=== PATIENT | female | born 1975 | race African-American/Black ===

== ENCOUNTER 2019-08-23 19:17 | Emergency (ER) | payer OTHER, SELFPAY ==
--- NOTE | 2019-08-23 19:32 | ED.URI ---
HPI - URI/Sore Throat General Chief Complaint: Upper Respiratory Infection Stated Complaint: Cold symptoms Time Seen by Provider: 08/23/19 19:45 Source: patient and RN notes reviewed Mode of arrival: ambulatory Limitations: no limitations Related Data Home Medications Medication Instructions Recorded Confirmed amlodipine 5 mg DAILY 07/17/19 08/23/19 atorvastatin 20 mg DAILY 07/17/19 08/23/19 metformin 500 mg PO DAILY 07/17/19 08/23/19 omeprazole 20 mg DAILY 07/17/19 08/23/19 Allergies Allergy/AdvReac Type Severity Reaction Status Date / Time No Known Allergies Allergy Verified 07/17/19 19:21 Review of Systems Review of Systems: Narrative: CONSTITUTIONAL: Denies malaise, chills, sweats, or fever. EYES: Denies visual changes, redness, or discharge. ENT: Reports rhinorrhea, congestion, sinus pain, otalgia and sore throat. CARDIOVASCULAR: Denies chest pain, palpitations, or edema. RESPIRATORY: Reports cough. Denies dyspnea. GASTROINTESTINAL: Denies abdominal pain, nausea, vomiting, diarrhea SKIN: Denies rash or itching. MUSCULOSKELETAL: Denies myalgia. NEUROLOGIC: Denies headache. All systems reviewed & are unremarkable except as noted in HPI and below PMFSH Social History Social History Gender identity (if verbalized by the patient): Female Comments At time of signature, agree with nursing past medical, surgical, social and family history. There is no relevant family history pertinent to the presenting complaint Exam Narrative: Exam Narrative: GENERAL: Well-appearing, well-nourished, and in no acute distress. HEAD: Normocephalic, atraumatic. EYES: PERRLA, conjunctivae clear, and EOMI. ENT: Nares clear, turbinates edematous and erythematous, clear discharge. Mucous membranes moist. TM pearly barraza with dull light reflex bilaterally; no tragal tenderness. Oropharynx erythematous without lesions. Tonsils enlarged and without exudate, no drooling, no hoarseness, no trismus. NECK: Supple. No lymphadenopathy CHEST: Clear to auscultation, breath sounds equal. No wheezing, rhonchi, rales, or stridor. No respiratory distress, speaks in full sentences. HEART: Regular rate and rhythm. No murmur heard. Normal peripheral pulses. SKIN: Warm, dry, no rash. NEURO: Alert and oriented x3. PSYCH: Normal mood and affect Course Course Emergency Course: Patient is aware of diagnosis, understands and agrees to treatment plan. Anticipatory guidance given. Patient agrees to follow-up as directed and is aware of reasons to seek care at the emergency department. Portions of this record may have been created with voice recognition software Vital Signs Vital signs: Reviewed. MDM - URI/Sore Throat MDM Narrative Medical decision making narrative: Differential diagnosis considered: Strep pharyngitis, allergic rhinitis, upper respiratory tract infection, sinusitis, rhinosinusitis, nasopharyngitis. viral pharyngitis, otitis media, otitis externa, pneumonia, bronchitis, viral cough syndrome, viral syndrome, and influenza. Exam findings show no acute concerns or changes; patient is non-toxic appearing and is in no distress. Patient is appropriate for outpatient treatment and follow-up. Critical Care Time Critical Care Time Critical Care Time: No Discharge Plan Discharge Clinical Impression: Upper respiratory infection Qualifiers: URI type: unspecified viral URI Qualified Code(s): J06.9 - Acute upper respiratory infection, unspecified Patient Disposition: Home, Self-Care Condition: Stable Instructions: Upper Respiratory Infection (ED) Additional Instructions: Take medications as directed. Your rapid strep swab was negative today at [facility]. A throat culture will be sent to the laboratory for further testing. If the test is positive, you will receive a phone call within 48 hours and an appropriate antibiotic will be initiated at that time. Your symptoms are likely due to a viral illness, which is not treated with antib
[2019-08-23 19:41] VITALS: BP 127/83; PULSE 92; RESP 16; TEMP 36.9; O2SAT 98
== END 2019-08-23 20:08 | disposition home or self-care (01) ==
PROVIDERS: Emergency Provider Nurse Practitioner; PCP Family Medicine
DX: J06.9 Acute upper respiratory infection, unspecified (principal)
CPT/HCPCS: 87081; 87880; 99213; G0463

== ENCOUNTER 2019-08-27 16:40 | Emergency (ER) | payer OTHER, SELFPAY ==
[2019-08-27 17:00] VITALS: BP 119/71; PULSE 93; RESP 18; TEMP 36.6; O2SAT 99
--- NOTE | 2019-08-27 17:26 | ED.GENADULT ---
HPI - General Adult General Chief complaint: Upper Respiratory Infection Stated complaint: runny nose cough Time Seen by Provider: 08/27/19 17:16 Source: patient and RN notes reviewed Mode of arrival: ambulatory Limitations: no limitations History of Present Illness HPI narrative: 44-year-old -[place] female presents with complaints of upper respiratory infection symptoms, hoarseness, dry cough, and intermittent headache (not the worst of her life) for 14 days. Flonase and Zyrtec without relief. Symptoms increased over the last 2 days with increase facial pressure and congestion and intermittent headaches. Constant dry cough. Rhinorrhea and nasal congestion. Denies sore throat. No high fevers, drooling, neck or throat swelling. No chest pain, wheezing, or shortness of breath. No exacerbation factors. Denies nausea, vomiting, and abdominal pain. Tolerating liquids well. Remains active. Laly denies being , LMP 08/05/2019. Some parts of this dictation were generated by voice recognition software and may contain typographical and/or grammatical inaccuracies. Related Data Home Medications Medication Instructions Recorded Confirmed amlodipine 5 mg DAILY 07/17/19 08/27/19 atorvastatin 20 mg DAILY 07/17/19 08/27/19 metformin 500 mg PO DAILY 07/17/19 08/27/19 omeprazole 20 mg DAILY 07/17/19 08/27/19 Allergies Allergy/AdvReac Type Severity Reaction Status Date / Time No Known Allergies Allergy Verified 08/27/19 17:01 Review of Systems Review of Systems: Narrative: CONSTITUTIONAL: Denies fever, chills, sweats. EYES: Denies visual changes, redness, discharge. ENT: Complains of rhinorrhea, congestion, facial pressure and congestion, hoarseness. Denies sore throat, otalgia. CARDIOVASCULAR: Denies chest pain, palpitations, edema. RESPIRATORY: Denies dyspnea, wheezing. Complains of dry cough. GASTROINTESTINAL: Denies abdominal pain, nausea, vomiting, diarrhea. GENITOURINARY: Denies dysuria, hematuria, abnormal discharge. SKIN: Denies rash or itching. MUSCULOSKELETAL: Denies acute back pain, joint pain, or myalgia. NEUROLOGIC: Denies numbness or focal weakness. Complains of intermittent SOMMERS. PSYCHIATRIC: Denies anxiety or depression. All systems reviewed & are unremarkable except as noted in HPI and below. [facility] Past Medical History Medical History (Updated 09/01/19 @ 20:48 by ROXIE Allison) Diabetes Hypercholesteremia Hypertension Surgical History Surgical History (Updated 09/01/19 @ 20:48 by ROXIE Allison) No significant past surgical history Family History Family History (Updated 09/01/19 @ 20:49 by ROXIE Allison) Mother Hypertension Diabetes mellitus Social History Social History (Updated 09/01/19 @ 20:50 by ROXIE Allison) Smoking status: Never smoker Second hand tobacco smoke exposure: No Substance use: never Living arrangements: with family Occupation/Education: occupation Gender identity (if verbalized by the patient): Female Comments At time of signature, agree with nurse past medical, surgical, social, and family history. There is no relevant family history pertinent to the presenting complaint. Exam Narrative: Exam Narrative: GENERAL: This is a well-nourished, well-developed patient, in no apparent distress. Talks in full sentences and ambulates with steady gait without dyspnea. HEAD: normocephalic, atraumatic. EYES: PERRL. Sclera clear/white. Vision is grossly intact. EARS: External ears normal, auditory canals clear and without drainage, TMs normal without perforation. Hearing grossly intact. NOSE: External nose normal with no obvious nasal discharge, nares with mild-moderate redness and enlarged turbinates, LT worse. No rhinorrhea. THROAT: Mucous membranes moist, posterior pharynx clear. Mild erythema, no exudate. NECK: Neck supple, non-tender without lymphadenopathy, masses or thyromegaly. CARDIOVASCULAR: Regular rate and
== END 2019-08-27 17:40 | disposition home or self-care (01) ==
PROVIDERS: Emergency Provider Nurse Practitioner Family; PCP Family Medicine
DX: J40 Bronchitis, not specified as acute or chronic (principal); E78.00 Pure hypercholesterolemia, unspecified; I10 Essential (primary) hypertension
CPT/HCPCS: 99213; G0463

== ENCOUNTER 2019-10-30 02:17 | Emergency (ER) | payer OTHER, SELFPAY ==
--- NOTE | ~2019-10-30 | XR_ITS ---
EXAMINATION: XR chest 2V DATE: 10/30/2019 03:25 INDICATION: Chest pain. TECHNIQUE: Frontal and lateral views of the chest were obtained. COMPARISON: None. FINDINGS: The chest demonstrates clear lungs without pneumonia, pleural effusion, or pneumothorax. Th e heart size is normal. IMPRESSION: 1. No acute cardiopulmonary disease. Reviewed, dictated and finalized at location A.
--- NOTE | ~2019-10-30 | XR_ITS ---
EXAMINATION: XR abdomen/kub 1V DATE: 10/30/2019 03:25 INDICATION: Abdominal pain. TECHNIQUE: A supine view of the abdomen on 2 radiographs was obtained. COMPARISON: None. FINDINGS: There are no dilated loops of bowel. There is a moderate volume of stool in the colon. Calc ifications in the pelvis may be phleboliths. IMPRESSION: 1. Nonobstructive bowel gas pattern. Reviewed, dictated and finalized at location A.
[2019-10-30 02:22] VITALS: BP 153/83; PULSE 107; RESP 18; O2SAT 100
[2019-10-30 02:41] VITALS: BP 141/99; PULSE 98; RESP 18; TEMP 36.6; O2SAT 100
[2019-10-30 03:24] LABS: Basophils Absolute Auto 0.1 K/mm3 (0.0-0.1); Basophils Percent Auto 1.7 % (0.2-1.2); Eosinophils Absolute Auto 0.2 K/mm3 (0-0.3); Eosinophils Percent Auto 3.5 % (0-4.4); Hemoglobin 12.9 g/dL (12.0-15.0); Immature Granulocyte Absolute 0.01 K/mm3 (0.00-0.031); Immature Granulocyte Percent A 0.2 % (0-0.5); Lymphocytes Absolute Auto 2.35 K/mm3 (0.9-3.2); Lymphocytes Percent Auto 43.6 % (18.3-44.2); Mean Corpuscular HGB Conc 32.3 g/dl (32-36); Mean Corpuscular Hemoglobin 26.4 pg (26-34); Mean Corpuscular Volume 81.8 fl (80-100); Mean Platelet Volume 11.6 fl (7.4-10.4); Monocytes Absolute Auto 0.4 K/mm3 (0.1-0.6); Monocytes Percent Auto 6.7 % (2.6-8.5); Neutrophils Absolute Auto 2.4 K/mm3 (1.3-6.7); Neutrophils Percent Auto 44.3 % (45.5-73.1); Platelet Count Result 258 k/mm3 (150-375); Red Blood Count 4.89 M/mm3 (4.2-5.4); Red Cell Distribution Width 13.5 % (11.5-14.5); White Blood Count 5.4 K/mm3 (4.5-10.0)
[2019-10-30 03:26] VITALS: BP 133/85; PULSE 88; RESP 18; O2SAT 100
[2019-10-30 03:38] LABS: Alanine Aminotransferase 22 U/L (4-35); Alkaline Phosphatase 48 U/L (38-126); Aspartate Amino Transferase 23 U/L (14-36); Bilirubin,Total 0.2 mg/dL (0.2-1.3); Blood Urea Nitrogen 10 mg/dL (7-17); Calcium 10.3 mg/dL (8.4-10.2); Carbon Dioxide 25 mmol/L (22-30); Chloride 106 mmol/L (98-107); Estimated CRCL calculation 90 ml/min; Estimated Glomerular Filt Rate > 60; Glucose 122 mg/dL (65-105); Lipase 42 U/L (23-300); Potassium 3.6 mmol/L (3.4-5.0); Sodium 141 mmol/L (137-145)
[2019-10-30 03:49] LABS: Troponin I < 0.012 ng/mL (0.000-0.034)
--- NOTE | 2019-10-30 03:50 | ED.ABDPAIN ---
HPI - Abdominal Pain General Chief Complaint: Abdominal Pain Stated Complaint: abd discomfort Time Seen by Provider: 10/30/19 02:53 History of Present Illness HPI narrative: Patient is a 44-year-old female who presented to the ER with crampy abdominal pain. Mainly in the upper abdomen and the left side. Worsening over the last week and intermittent in nature. Associated with decreased bowel movements. She is been taking acid reflux medication with minimal relief. Sometimes the discomfort goes up into her left side and the chest wall. No difficulty breathing. No exertional chest pain component. She has not found any alleviating factors for the abdominal discomfort. Related Data Home Medications Medication Instructions Recorded Confirmed amlodipine 5 mg DAILY 07/17/19 08/27/19 atorvastatin 20 mg DAILY 07/17/19 08/27/19 metformin 500 mg PO DAILY 07/17/19 08/27/19 omeprazole 20 mg DAILY 07/17/19 08/27/19 Allergies Allergy/AdvReac Type Severity Reaction Status Date / Time No Known Allergies Allergy Verified 08/27/19 17:01 Review of Systems Review of Systems: All systems reviewed & are unremarkable except as noted in HPI and below Constitutional: Constitutional: Denies chills, Denies fever(s) and Denies weakness ENT: Denies nasal congestion and Denies sore throat Cardiovascular: Cardiovascular: Reports chest pain and Denies radiating jaw, neck or arm pain Respiratory: Respiratory: Denies cough, Denies dyspnea and Denies wheezing Gastrointestinal: Gastrointestinal: Reports abdominal pain, Reports bloating, Reports constipation, Denies diarrhea, Reports nausea and Denies vomiting PMFSH Past Medical History Medical History (Updated 10/30/19 @ 05:53 by Richie Faye MD) Diabetes Hypercholesteremia Hypertension Surgical History Surgical History (Updated 09/01/19 @ 20:48 by ROXIE Allison) No significant past surgical history Family History Family History (Updated 09/01/19 @ 20:49 by ROXIE Allison) Mother Hypertension Diabetes mellitus Social History Social History (Updated 09/01/19 @ 20:50 by ROXIE Allison) Smoking status: Never smoker Second hand tobacco smoke exposure: No Substance use: never Gender identity (if verbalized by the patient): Female Exam Narrative: Exam Narrative: GENERAL: Well-appearing, well-nourished, and in no acute distress. HEAD: Normocephalic, atraumatic. ENT: Mucous membranes moist. CHEST: Clear to auscultation. No respiratory distress. HEART: Regular rate and rhythm. Normal peripheral pulses. ABDOMEN: Soft, nontender, nondistended. EXTREMITIES: Normal range of motion. No edema. Left hand splinted due to carpal tunnel syndrome. SKIN: Warm, dry, no rash. NEURO: Alert and oriented x3. Course Course Emergency Course: Patient resting comfortably. Informed of results. Discharge home with MiraLAX as needed for constipation. Vital Signs Vital signs: Vital Signs Pulse Rate 107 H 10/30/19 02:22 Respiratory Rate 18 10/30/19 02:22 Blood Pressure 153/83 H 10/30/19 02:22 Pulse Oximetry 100 10/30/19 02:22 Temperature 97.9 F 10/30/19 02:41 Pulse Rate 100 10/30/19 05:31 Respiratory Rate 18 10/30/19 05:31 Blood Pressure 129/89 10/30/19 05:31 Pulse Oximetry 100 10/30/19 05:31 MDM - Abdominal Pain Lab Data Result diagrams: 10/30/19 03:19 10/30/19 03:19 Labs: Lab Results 10/30/19 10/30/19 Range/Units 03:19 03:19 WBC 5.4 (4.5-10.0) K/mm3 RBC 4.89 (4.2-5.4) M/mm3 Hgb 12.9 (12.0-15.0) g/dL Hct 40.0 (37.0-47.0) % MCV 81.8 (80-100) fl MCH 26.4 (26-34) pg MCHC 32.3 (32-36) g/dl RDW 13.5 (11.5-14.5) % Plt Count 258 (150-375) k/mm3 MPV 11.6 H (7.4-10.4) fl Immature Gran % (Auto) 0.2 (0-0.5) % Neut % (Auto) 44.3 L (45.5-73.1) % Lymph % (Auto) 43.6 (18.3-44.2) % [place] % (Auto) 6.7 (2.6-8.5) % Eos % (Auto)
[2019-10-30 04:22] VITALS: BP 125/77; PULSE 98; RESP 18; O2SAT 100
[2019-10-30 05:31] VITALS: BP 129/89; PULSE 100; RESP 18; O2SAT 100
[2019-10-30 06:11] VITALS: BP 124/80; PULSE 100; RESP 16; TEMP 36.7; O2SAT 100
== END 2019-10-30 06:13 | disposition home or self-care (01) ==
PROVIDERS: Emergency Provider Emergency Medicine; PCP Family Medicine
DX: K59.00 Constipation, unspecified (principal); E11.9 Type 2 diabetes mellitus without complications; E78.00 Pure hypercholesterolemia, unspecified; I10 Essential (primary) hypertension; Z79.84 Long term (current) use of oral hypoglycemic drugs
CPT/HCPCS: 36415; 71046; 74018; 80053; 83690; 84484; 85025; 99284

== ENCOUNTER 2019-11-02 08:03 | Emergency (ER) | payer OTHER, SELFPAY ==
[2019-11-02 08:16] VITALS: BP 135/81; PULSE 101; RESP 16; TEMP 36.7; O2SAT 99
--- NOTE | 2019-11-02 08:31 | ED.ABDPAIN ---
HPI - Abdominal Pain General Chief Complaint: Abdominal Pain Stated Complaint: gas pain in stomach/pain on left arm Time Seen by Provider: 11/02/19 08:18 Source: patient, RN notes reviewed and old records reviewed Mode of arrival: ambulatory Limitations: no limitations History of Present Illness HPI narrative: Patient presents today complaining of left abdominal gas pains that radiate to the left clavicle and left chest wall area. Patient was seen in the ER on 10/30/19 for same complaint. She had a cardiac work up, as well as KUB, which showed moderate amt of stool in the colon and nonspecific bowel gas pattern. She was prescribed Miralax. Since her ER visit, she has been taking Mylanta, Tums, and Ex-Lax. States she is having bowel movements. Reports her gas pains improve after belching. Denies any additional symptoms. MD elicited complaint: abdominal pain Pertinent past history: constipation Related Data Home Medications Medication Instructions Recorded Confirmed amlodipine 5 mg PO DAILY 07/17/19 11/02/19 atorvastatin 20 mg PO DAILY 07/17/19 11/02/19 metformin 500 mg PO DAILY 07/17/19 11/02/19 omeprazole 20 mg PO DAILY 07/17/19 11/02/19 Allergies Allergy/AdvReac Type Severity Reaction Status Date / Time No Known Allergies Allergy Verified 08/27/19 17:01 Review of Systems Review of Systems: Narrative: CONSTITUTIONAL: Denies body aches, fever, chills, or sweats. EYES: Denies visual changes, redness, or discharge. ENT: Denies rhinorrhea, congestion, sore throat, or otalgia. CARDIOVASCULAR: Denies chest pain, palpitations, or edema. RESPIRATORY: Denies cough or dyspnea. GASTROINTESTINAL: Denies nausea, vomiting, or diarrhea.+ Left abdominal cramping GENITOURINARY: Denies dysuria or hematuria. SKIN: Denies rash, itching, or wounds. MUSCULOSKELETAL: Denies back pain, joint pain, or myalgia. NEUROLOGIC: Denies headache, numbness, tingling, or weakness. PSYCH: Denies depression or anxiety. [facility] Past Medical History Medical History (Updated 11/02/19 @ 08:37 by Fifi Victoria, [facility], ) Diabetes Hypercholesteremia Hypertension Surgical History Surgical History (Updated 09/01/19 @ 20:48 by ROXIE Allison) No significant past surgical history Family History Family History (Updated 09/01/19 @ 20:49 by ROXIE Allsion) Mother Hypertension Diabetes mellitus Social History Social History (Updated 09/01/19 @ 20:50 by ROXIE Allison) Smoking status: Never smoker Second hand tobacco smoke exposure: No Substance use: never Gender identity (if verbalized by the patient): Female Comments At time of signature, I have reviewed and agree with nursing past medical, surgical, social and family history unless otherwise noted. Please see nursing chart for further information. There is no relevant family history pertinent to the presenting complaint Exam Narrative: Exam Narrative: GENERAL: Well-appearing, well-nourished, and in no acute distress. HEAD: Normocephalic, atraumatic. EYES: EOMI. No redness or drainage. Conjunctivae normal. ENT: Mucous membranes pink and moist. NECK: Normal AROM. Supple. No lymphadenopathy. CHEST: No respiratory distress. Clear to auscultation. HEART: Regular rate and rhythm. No murmur appreciated. Normal peripheral pulses. ABDOMEN: Soft, nontender, nondistended, normal active bowel sounds. EXTREMITIES: Normal range of motion. No edema. SKIN: Warm, dry, no rash. Capillary refill normal. Normal skin turgor. NEURO: No focal deficits. Alert and oriented x3. Gait steady. PSYCH: Normal affect. No signs of depression or anxiety. Course Vital Signs Vital signs: Vital Signs Temperature 98.1 F 11/02/19 08:16 Pulse Rate 101 H 11/02/19 08:16 Respiratory Rate 16 11/02/19 08:16 Blood Pressure 135/81 11/02/19 08:16 Pulse Oximetry 99 11/02/19 08:16 Temperature 98.1 F 11/02/19 08:16 Pulse Rate 101 H 11/02/19 08:16 Re
== END 2019-11-02 08:39 | disposition home or self-care (01) ==
PROVIDERS: Emergency Provider Nurse Practitioner
DX: R14.1 Gas pain (principal); E11.9 Type 2 diabetes mellitus without complications; E78.00 Pure hypercholesterolemia, unspecified; I10 Essential (primary) hypertension; K21.9 Gastro-esophageal reflux disease without esophagitis
CPT/HCPCS: 99213; G0463

== ENCOUNTER 2019-11-17 19:20 | Emergency (ER) | payer OTHER, SELFPAY ==
[2019-11-17 19:33] VITALS: BP 155/91; PULSE 121; RESP 16; TEMP 37.1; O2SAT 100
--- NOTE | 2019-11-17 19:37 | ED.GENADULT ---
HPI - General Adult General Chief complaint: Extremity Injury, Lower Stated complaint: muscle pain/both legs Time Seen by Provider: 11/17/19 19:35 Source: patient and RN notes reviewed Mode of arrival: ambulatory Limitations: no limitations History of Present Illness HPI narrative: [id number] female presents with concern for bilateral anterior bahena pain. She denies tenderness to touch, reports pain with dorsiflexion bilaterally. Reports she recently started a new walking routine for exercise. She denies any injury. Denies posterior calf redness, swelling, pain, tenderness. MD complaint: Muscle pain Related Data Home Medications Medication Instructions Recorded Confirmed amlodipine 5 mg PO DAILY 07/17/19 11/02/19 atorvastatin 20 mg PO DAILY 07/17/19 11/02/19 omeprazole 20 mg PO DAILY 07/17/19 11/02/19 Depo-Provera 11/17/19 ergocalciferol (vitamin D2) 11/17/19 Allergies Allergy/AdvReac Type Severity Reaction Status Date / Time No Known Allergies Allergy Verified 08/27/19 17:01 Review of Systems Review of Systems: Narrative: CONSTITUTIONAL: Denies malaise, chills, sweats, or fever. ENT: Denies rhinorrhea, congestion, sinus pain, otalgia or sore throat. CARDIOVASCULAR: Denies chest pain, palpitations, or edema. RESPIRATORY: Denies cough or dyspnea. GASTROINTESTINAL: Denies abdominal pain, nausea, vomiting, diarrhea SKIN: Denies bruising, redness, tenderness MUSCULOSKELETAL: Reports bilateral anterior lower leg pain with dorsiflexion NEUROLOGIC: Denies numbness, weakness. All systems reviewed & are unremarkable except as noted in HPI and below [facility] Past Medical History Medical History (Updated 11/17/19 @ 19:48 by Akila Chapman NP) Diabetes Hypercholesteremia Hypertension Surgical History Surgical History (Updated 09/01/19 @ 20:48 by ROXIE Allison) No significant past surgical history Family History Family History (Updated 09/01/19 @ 20:49 by ROXIE Allison) Mother Hypertension Diabetes mellitus Social History Social History (Updated 09/01/19 @ 20:50 by ROXIE Allison) Smoking status: Never smoker Second hand tobacco smoke exposure: No Substance use: never Gender identity (if verbalized by the patient): Female Comments At time of signature, agree with nursing past medical, surgical, social and family history. There is no relevant family history pertinent to the presenting complaint Exam Narrative: Exam Narrative: GENERAL: Well-appearing, well-nourished, and in no acute distress. HEAD: Normocephalic, atraumatic. EYES: PERRLA, conjunctivae clear NECK: Supple. CHEST: Speaks in full sentences. No respiratory distress. HEART: Regular rate and rhythm. Normal and equal peripheral pulses. EXTREMITIES: Bilateral lower legs, ankles, feet has normal strength and sensation, no edema, normal range of motion. 5/5 strength with knee and ankle flexion and extension. Normal sensation with sensitivity to light touch and pain. No open wounds, no skin tenting, no devitalized tissue or atrophy, no trophic changes, no ecchymosis, no obvious deformity, alignment normal, no point tenderness, nearby joints and structures intact. Distal pulses palpable and equal bilaterally, skin warm, dry, pink. Capillary refill less than 3 seconds. SKIN: Warm, dry, no rash. NEURO: Alert and oriented x3. PSYCH: Normal mood and affect Course Course Emergency Course: Patient is aware of diagnosis, understands and agrees to treatment plan. Anticipatory guidance given. Patient agrees to follow-up as directed and is aware of reasons to seek care at the emergency department. Portions of this record may have been created with voice recognition software Vital Signs Vital signs: Vital Signs Temperature 98.8 F 11/17/19 19:33 Pulse Rate 121 H 11/17/19 19:33 Respiratory Rate 16 11/17/19 19:33 Blood Pressure 155/91 H 11/17/19 19:33 Pulse Oximetry 100 11/17/19 19:33 [place]
== END 2019-11-17 19:51 | disposition home or self-care (01) ==
PROVIDERS: Emergency Provider Nurse Practitioner; PCP Family Medicine
DX: S86.892A Other injury of other muscle(s) and tendon(s) at lower leg level, left leg, initial encounter (principal); S86.891A Other injury of other muscle(s) and tendon(s) at lower leg level, right leg, initial encounter; E11.9 Type 2 diabetes mellitus without complications; E78.00 Pure hypercholesterolemia, unspecified; I10 Essential (primary) hypertension; X50.9XXA Other and unspecified overexertion or strenuous movements or postures, initial encounter; Y93.01 Activity, walking, marching and hiking
CPT/HCPCS: 99212; G0463

== ENCOUNTER 2019-12-13 16:17 | Emergency (ER) | payer OTHER, SELFPAY ==
[2019-12-13 16:26] VITALS: BP 143/79; PULSE 107; RESP 16; TEMP 36.7; O2SAT 100
--- NOTE | 2019-12-13 16:32 | ED.EAR ---
HPI - Ear Problem General Chief complaint: Ear Stated complaint: left ear pain Time Seen by Provider: 12/13/19 16:33 Source: patient and RN notes reviewed Mode of arrival: ambulatory Limitations: no limitations History of Present Illness HPI Narrative: This is a 44 years old female presented office for evaluation of ears pain for two days. Associated with headache. Denies sick contact at home. Admits to history of seasonal allergy. Related Data Home Medications Medication Instructions Recorded Confirmed amlodipine 5 mg PO DAILY 07/17/19 11/02/19 atorvastatin 20 mg PO DAILY 07/17/19 11/02/19 omeprazole 20 mg PO DAILY 07/17/19 11/02/19 Depo-Provera 11/17/19 ergocalciferol (vitamin D2) 11/17/19 Allergies Allergy/AdvReac Type Severity Reaction Status Date / Time No Known Allergies Allergy Verified 08/27/19 17:01 Review of Systems Review of Systems: Narrative: CONSTITUTIONAL: Denies fever, or feeling ill ENT: Denies sore throat. CARDIOVASCULAR: Denies chest pain RESPIRATORY: Denies dyspnea, wheezing, cough GASTROINTESTINAL: Denies abdominal pain, nausea, vomiting, diarrhea. GENITOURINARY: Denies urinary symptoms or discharge SKIN: Denies rash MUSCULOSKELETAL: Denies acute back pain NEUROLOGIC: Denies lightheaded PMFSH Past Medical History Medical History (Updated 12/13/19 @ 16:41 by ROXIE Guajardo) Diabetes Hypercholesteremia Hypertension Seasonal allergies Surgical History Surgical History No significant past surgical history Family History Family History Mother Hypertension Diabetes mellitus Social History Social History Smoking status: Never smoker Second hand tobacco smoke exposure: No Substance use: never Gender identity (if verbalized by the patient): Female Comments At time of signature, I agree with nursing past medical, surgical, social and family history. There is no relevant family history pertinent to the presenting complaint. Exam Narrative: Exam Narrative: GENERAL: This is a well-nourished, well-developed patient, in no apparent distress. EARS: External ears normal, auditory canals clear and without drainage, TMs noted fluid level; no perforation or bulging noted. Hearing grossly intact. NOSE: External nose normal with no obvious nasal discharge, nares without redness, no rhinorrhea. THROAT: Mucous membranes moist, posterior pharynx clear. NECK: Neck supple, non-tender without lymphadenopathy, masses or thyromegaly. CARDIOVASCULAR: Regular rate and rhythm without murmurs, gallops, or rubs. RESPIRATORY: Clear to auscultation. Breath sounds equal bilaterally. No wheezes, rales, or rhonchi. GASTROINTESTINAL: Abdomen soft, non-tender, nondistended. Bowel sounds are active. No hepato-splenomegaly, or palpable masses. No guarding. SKIN: warm, intact with no suspicious lesions or rash, good texture and turgor. NEURO: awake, alert, and oriented to person, place and time. There were no obvious focal neurologic abnormalities. Steady gait [facility] Coma Scale Eye Opening: Spontaneous 4 [place] Coma Scale Motor: Obeys Commands 6 [place] Coma Scale Verbal: Oriented 5 Course Vital Signs Vital signs: Vital Signs Temperature 98.0 F 12/13/19 16:26 Pulse Rate 107 H 12/13/19 16:26 Respiratory Rate 16 12/13/19 16:26 Blood Pressure 143/79 H 12/13/19 16:26 Pulse Oximetry 100 12/13/19 16:26 Temperature 98.0 F 12/13/19 16:26 Pulse Rate 107 H 12/13/19 16:26 Respiratory Rate 16 12/13/19 16:26 Blood Pressure 143/79 H 12/13/19 16:26 Pulse Oximetry 100 12/13/19 16:26 Medical Decision Making MDM Narrative Medical decision making narrative: Discharge instructions reviewed with patient, as well as provided in writing per nursing staff. The instructions also include specific and
== END 2019-12-13 16:53 | disposition home or self-care (01) ==
PROVIDERS: Emergency Provider Nurse Practitioner; PCP Family Medicine
DX: H65.03 Acute serous otitis media, bilateral (principal); E11.9 Type 2 diabetes mellitus without complications; E78.00 Pure hypercholesterolemia, unspecified; I10 Essential (primary) hypertension
CPT/HCPCS: 99213; G0463

== ENCOUNTER 2019-12-18 14:38 | Emergency (ER) | payer OTHER, SELFPAY ==
[2019-12-18 14:53] VITALS: BP 145/83; PULSE 94; RESP 18; TEMP 36.3; O2SAT 100
--- NOTE | 2019-12-18 15:07 | ED.EAR ---
HPI - Ear Problem General Chief complaint: Ear Stated complaint: Ear ache Time Seen by Provider: 12/18/19 14:57 Source: patient, RN notes reviewed and old records reviewed Mode of arrival: ambulatory Limitations: no limitations History of Present Illness HPI Narrative: Patient presents today complaining of bilateral ear pain, left greater than right. She was initially seen at [facility] on 12/13/2019, diagnosed with bilateral serous otitis media and prescribed Sudafed. She has also been using Flonase. Reports the right ear is somewhat improved, but the left ear has been persistent. She is also been occasionally taking Aleve for pain. Denies drainage from the ear. Denies any additional symptoms. MD Complaint: ear pain Related Data Home Medications Medication Instructions Recorded Confirmed amlodipine 5 mg PO DAILY 07/17/19 12/18/19 atorvastatin 20 mg PO DAILY 07/17/19 12/18/19 omeprazole 20 mg PO DAILY 07/17/19 12/18/19 ergocalciferol (vitamin D2) 1 mcg PO DAILY 11/17/19 medroxyprogesterone 150 mg IM [id number] 12/18/19 12/18/19 Allergies Allergy/AdvReac Type Severity Reaction Status Date / Time No Known Allergies Allergy Verified 12/18/19 14:58 Review of Systems Review of Systems: Narrative: CONSTITUTIONAL: Denies body aches, fever, chills, or sweats. EYES: Denies visual changes, redness, or discharge. ENT: Denies rhinorrhea, congestion, sore throat. + Bilateral ear pain CARDIOVASCULAR: Denies chest pain, palpitations, or edema. RESPIRATORY: Denies cough or dyspnea. GASTROINTESTINAL: Denies abdominal pain, nausea, vomiting, or diarrhea. GENITOURINARY: Denies dysuria or hematuria. SKIN: Denies rash, itching, or wounds. MUSCULOSKELETAL: Denies back pain, joint pain, or myalgia. NEUROLOGIC: Denies headache, numbness, tingling, or weakness. PSYCH: Denies depression or anxiety. [facility] Past Medical History Medical History (Updated 12/18/19 @ 15:09 by ROXIE Jean, ) Diabetes Hypercholesteremia Hypertension Seasonal allergies Surgical History Surgical History No significant past surgical history Social History Social History Smoking status: Never smoker Second hand tobacco smoke exposure: No Substance use: never Gender identity (if verbalized by the patient): Female Comments At time of signature, I have reviewed and agree with nursing past medical, surgical, social and family history unless otherwise noted. Please see nursing chart for further information. There is no relevant family history pertinent to the presenting complaint Exam Narrative: Exam Narrative: GENERAL: Well-appearing, well-nourished, and in no acute distress. HEAD: Normocephalic, atraumatic. EYES: EOMI. No redness or drainage. Conjunctivae normal. ENT: Mucous membranes pink and moist. Nares clear. No rhinorrhea. Right TM normal. Left TM erythematous with purulent material behind the TM. Throat normal. Uvula midline. NECK: Normal AROM. Supple. No lymphadenopathy. CHEST: No respiratory distress. EXTREMITIES: Normal range of motion. No edema. SKIN: Warm, dry, no rash. Capillary refill normal. Normal skin turgor. NEURO: No focal deficits. Alert and oriented x3. Gait steady. PSYCH: Normal affect. No signs of depression or anxiety. Course Vital Signs Vital signs: Vital Signs Temperature 97.3 F L 12/18/19 14:53 Pulse Rate 94 12/18/19 14:53 Respiratory Rate 18 12/18/19 14:53 Blood Pressure 145/83 H 12/18/19 14:53 Pulse Oximetry 100 12/18/19 14:53 Temperature 97.3 F L 12/18/19 14:53 Pulse Rate 94 12/18/19 14:53 Respiratory Rate 18 12/18/19 14:53 Blood Pressure 145/83 H 12/18/19 14:53 Pulse Oximetry 100 12/18/19 14:53 Reviewed. Pt has been instructed to follow up with her PCP regarding her elevated blood pressure today. Medical Decision Making Differential Diag
== END 2019-12-18 15:12 | disposition home or self-care (01) ==
PROVIDERS: Emergency Provider Nurse Practitioner; PCP Family Medicine
DX: H66.002 Acute suppurative otitis media without spontaneous rupture of ear drum, left ear (principal); E11.9 Type 2 diabetes mellitus without complications; E78.00 Pure hypercholesterolemia, unspecified; I10 Essential (primary) hypertension
CPT/HCPCS: 99213; G0463

== ENCOUNTER 2019-12-19 22:07 | Emergency (ER) | payer OTHER, SELFPAY ==
--- NOTE | ~2019-12-19 | XR_ITS ---
EXAMINATION: XR chest 2V 12/19/2019 23:07 INDICATION: Sided chest pain. History of gastroesophageal reflux disease. PROCEDURE: 2 view chest COMPARISON: 10/30/2019 FINDINGS: The lungs are clear. The cardiomediastinal silhouette is within normal limits. There are no pleural effusions. There is no pneumothorax suspected. IMPRESSION: 1: NO ACUTE CARDIOPULMONARY DISEASE. Reviewed, dictated and finalized at location A.
[2019-12-19 22:08] VITALS: BP 153/80; PULSE 85; RESP 18; TEMP 36.3; O2SAT 99
--- NOTE | 2019-12-19 22:43 | ECG_ITS ---
Measurements Intervals [place] Rate: 97 P: 76 [place]: 131 QRS: 19 QRSD: 96 T: 3 QT: 339 QTc: 431 Interpretive Statements SINUS RHYTHM NONSPECIFIC T-WAVE ABNORMALITY- ANT/INF LEADS BORDERLINE ECG Electronically Signed On 12-20-2019 7:30:08 CDT by Alin Alba D.O.
--- NOTE | 2019-12-19 22:44 | ED.ABDPAIN ---
HPI - Abdominal Pain General Chief Complaint: Abdominal Pain Stated Complaint: GAS PAIN? Time Seen by Provider: 12/19/19 22:22 Source: RN notes reviewed History of Present Illness HPI narrative: Patient presents emergency department from home for abdominal pain. Patient states over the past 2 weeks she has been having intermittent abdominal pain in her left upper abdomen and lower chest. Patient states the pain is worse when she eats and then will resolve over time after she eats states that it does get better when she takes Tums. She denies any fevers or chills shortness of breath vomiting diarrhea or any other symptoms she was seen by her PCP and started on Protonix but states she has noted minimal improvement. She states she has never seen GI or had any EGDs she denies any other symptoms at this time. Patient currently denies any pain in the emergency department. Patient states symptoms been worse yesterday after eating [employer] and corn nuts Related Data Home Medications Medication Instructions Recorded Confirmed amlodipine 5 mg PO DAILY 07/17/19 12/18/19 atorvastatin 20 mg PO DAILY 07/17/19 12/18/19 ergocalciferol (vitamin D2) 1 mcg PO 2XW 11/17/19 medroxyprogesterone 150 mg IM [id number] 12/18/19 12/18/19 cetirizine 10 mg PO DAILY 12/19/19 pantoprazole 40 mg PO QAM 12/19/19 Allergies Allergy/AdvReac Type Severity Reaction Status Date / Time No Known Allergies Allergy Verified 12/19/19 22:21 Review of Systems Review of Systems: Narrative: Gen.: Denies fevers or chills Eyes: Denies eye pain or visual change ENT: Denies congestion Respiratory: Denies shortness of breath or cough CV: Reports chest pain, denies palpitations GI: Reports abdominal pain, denies nnausea, emesis or diarrhea denies burning, urgency, frequency or hematuria Musculoskeletal: Denies back pain or muscle pain Neuro: Denies numbness, tingling, weakness or focal weakness Skin: Denies rash Except as documented, all other systems reviewed and negative [facility] Past Medical History Medical History Diabetes Hypercholesteremia Hypertension Seasonal allergies Surgical History Surgical History No significant past surgical history Social History Social History Smoking status: Never smoker Second hand tobacco smoke exposure: No Substance use: never Gender identity (if verbalized by the patient): Female Exam Narrative: Exam Narrative: APPEARANCE: No acute distress, nontoxic, resting in bed EYES: EOMI HEENT: Normocephalic, atraumatic, OMM RESPIRATORY: No respiratory distress Clear to auscultation bilaterally with no rhonchi wheezing or rales. CARDIOVASCULAR: Regular rate and rhythm without murmurs rubs or gallops. ABDOMINAL: Soft, nontender, nondistended, no rebound or guarding MUSCULOSKELETAl: Moves all extremities. No clubbing, cyanosis or edema. NEURO: Awake and alert. Following commands, speech normal, no focal deficits SKIN:: Warm, dry. No rashes lesions or abrasions PSYCHIATRIC: Normal affect/mood, Course Course Emergency Course: Discussed with patient results of workup and diagnosis. Discussed need for follow-up with primary care, proper use of medication, and reasons to return to the emergency department. Patient understands and agrees to current treatment plan. Discussed need for follow-up with GI and possible EGD Prior to discharge the patient had asked me about medication for sinus pressure she states that she had seen her doctor 2 days ago for sinus pressure and fullness in her ears and had been prescribed antibiotics and nasal spray she states she has been using those and have been using Sudafed but was concerned with her hypertension that she did not want to continue using Sudafed. Recommended Mucinex Vital Signs Vital signs: Vital Signs Temperature
[2019-12-19 22:47] LABS: Basophils Absolute Auto 0.1 K/mm3 (0.0-0.1); Basophils Percent Auto 1.7 % (0.2-1.2); Eosinophils Absolute Auto 0.1 K/mm3 (0-0.3); Eosinophils Percent Auto 2.3 % (0-4.4); Hematocrit 37.6 % (37.0-47.0); Hemoglobin 12.5 g/dL (12.0-15.0); Lymphocytes Absolute Auto 1.69 K/mm3 (0.9-3.2); Lymphocytes Percent Auto 35.8 % (18.3-44.2); Mean Corpuscular HGB Conc 33.2 g/dl (32-36); Mean Corpuscular Hemoglobin 27.3 pg (26-34); Mean Corpuscular Volume 82.1 fl (80-100); Mean Platelet Volume 10.9 fl (7.4-10.4); Monocytes Absolute Auto 0.3 K/mm3 (0.1-0.6); Monocytes Percent Auto 5.5 % (2.6-8.5); Neutrophils Absolute Auto 2.6 K/mm3 (1.3-6.7); Neutrophils Percent Auto 54.7 % (45.5-73.1); Platelet Count Result 239 k/mm3 (150-375); Red Blood Count 4.58 M/mm3 (4.2-5.4); Red Cell Distribution Width 13.1 % (11.5-14.5); White Blood Count 4.7 K/mm3 (4.5-10.0)
[2019-12-19 22:50] LABS: Add Urine Microscopic? YES; Appearance Urine Cloudy (Clear); Bacteria Urine 1+ /hpf; Bilirubin Urine Negative (Negative); Blood Urine 2+ (Negative); Color Urine Straw (Yellow); Glucose Urine UA Negative (Negative); Ketones Urine Trace mg/dL (Negative); Leukocyte Esterase Ur Negative LEU/UL (Negative); Mucus Urine Rare /lpf; Nitrate Urine Negative (Negative); Protein Urine Negative (Negative); RBC Urine 0-2 /hpf (0-2); Specific Grav Ur 1.012 (1.001-1.035); Squamous Epithelial Cell Urine Many /hpf (Few); Urobilinogen Urine Negative mg/dL (<2.0)
[2019-12-19 22:58] LABS: Alanine Aminotransferase 35 U/L (4-35); Albumin Level 4.8 g/dL (3.5-5.1); Alkaline Phosphatase 49 U/L (38-126); Aspartate Amino Transferase 28 U/L (14-36); Bilirubin,Total 0.5 mg/dL (0.2-1.3); Blood Urea Nitrogen 8 mg/dL (7-17); Calcium 9.7 mg/dL (8.4-10.2); Carbon Dioxide 24 mmol/L (22-30); Chloride 107 mmol/L (98-107); Estimated Glomerular Filt Rate > 60; Glucose 142 mg/dL (65-105); Lipase 35 U/L (23-300); Potassium 3.4 mmol/L (3.4-5.0); Sodium 141 mmol/L (137-145)
[2019-12-19 23:10] LABS: Troponin I < 0.012 ng/mL (0.000-0.034)
[2019-12-20 01:21] LABS: Troponin I < 0.012 ng/mL (0.000-0.034)
[2019-12-20 01:51] VITALS: BP 125/89; PULSE 86; RESP 18; O2SAT 100
== END 2019-12-20 01:53 | disposition home or self-care (01) ==
PROVIDERS: Emergency Provider Emergency Medicine; PCP Family Medicine
DX: K21.9 Gastro-esophageal reflux disease without esophagitis (principal); E11.9 Type 2 diabetes mellitus without complications; E78.00 Pure hypercholesterolemia, unspecified; I10 Essential (primary) hypertension; R94.31 Abnormal electrocardiogram [ECG] [EKG]
CPT/HCPCS: 36415; 71046; 80053; 81001; 81025; 83690; 84484; 85025; 85610; 85730; 93005; 99284

== ENCOUNTER 2019-12-25 15:12 | Emergency (ER) | payer OTHER, SELFPAY ==
[2019-12-25 15:20] VITALS: BP 135/80; PULSE 101; RESP 18; TEMP 37.5; O2SAT 100
--- NOTE | 2019-12-25 15:37 | ED.EXTPRO ---
HPI - Extremity Problem General Chief complaint: Extremity Problem,Nontraumatic Stated complaint: muscle spasm Time Seen by Provider: 12/25/19 15:30 Source: patient and RN notes reviewed Mode of arrival: ambulatory Limitations: no limitations History of Present Illness HPI Narrative: Patient presents today complaining of discomfort in her bilateral lower legs. She describes this discomfort as, the feeling you have before you get a charley horse. States she has been up on her feet working all day and was unable to get in to see her PCP today, so she wanted to come in for evaluation and etiology of this sensation. Denies numbness or tingling in the extremities. Denies pain at this time. Patient has an appt with her PCP in 5 days, but did not think she could wait that long for evaluation. States she has mentioned it to her PCP at past visits but was nonspecific when asked what their plan was for this complaint. Review of patient's chart shows she presents frequently to the ER and Urgent care for various complaints. She was diagnosed with bahena splints on 11/17/2019, and could not verbalize whether or not the symptoms she is currently having are similar to when she presented with bahena splints. Complaint: other (Leg cramping) Related Data Home Medications Medication Instructions Recorded Confirmed amlodipine 5 mg PO DAILY 07/17/19 12/25/19 atorvastatin 20 mg PO DAILY 07/17/19 12/25/19 ergocalciferol (vitamin D2) 1 mcg PO 2XW 11/17/19 12/25/19 medroxyprogesterone 150 mg IM [id number] 12/18/19 12/25/19 cetirizine 10 mg PO DAILY 12/19/19 12/25/19 pantoprazole 40 mg PO QAM 12/19/19 12/25/19 metformin 500 mg PO DIRECTED 12/25/19 12/25/19 Allergies Allergy/AdvReac Type Severity Reaction Status Date / Time No Known Allergies Allergy Verified 12/19/19 22:21 Review of Systems Review of Systems: Narrative: CONSTITUTIONAL: Denies body aches, fever, chills, or sweats. EYES: Denies visual changes, redness, or discharge. ENT: Denies rhinorrhea, congestion, sore throat, or otalgia. CARDIOVASCULAR: Denies chest pain, palpitations, or edema. RESPIRATORY: Denies cough or dyspnea. GASTROINTESTINAL: Denies abdominal pain, nausea, vomiting, or diarrhea. GENITOURINARY: Denies dysuria or hematuria. SKIN: Denies rash, itching, or wounds. MUSCULOSKELETAL: Denies back pain, joint pain. + Bilateral lower leg cramping NEUROLOGIC: Denies headache, numbness, tingling, or weakness. PSYCH: Denies depression or anxiety. PMFSH Surgical History Surgical History No significant past surgical history Social History Social History Smoking status: Never smoker Second hand tobacco smoke exposure: No Substance use: never Gender identity (if verbalized by the patient): Female Comments At time of signature, I have reviewed and agree with nursing past medical, surgical, social and family history unless otherwise noted. Please see nursing chart for further information. There is no relevant family history pertinent to the presenting complaint Exam Narrative: Exam Narrative: GENERAL: Well-appearing, well-nourished, and in no acute distress. HEAD: Normocephalic, atraumatic. EYES: EOMI. No redness or drainage. Conjunctivae normal. ENT: Mucous membranes pink and moist. NECK: Normal AROM. CHEST: No respiratory distress. EXTREMITIES: Nontender to palpation of bilateral lower legs. No edema noted. Distal sensation intact. Capillary refill normal. Pedal pulses normal. Normal color. Normal range of motion. -Panda's SKIN: Warm, dry, no rash. Capillary refill normal. Normal skin turgor. NEURO: No focal deficits. Alert and oriented x3. Gait steady. PSYCH: Normal affect. No signs of depression or anxiety. Course Vital Signs Vital signs: Vital Signs Temperature 99.5 F 12/25/19 15:20 Pulse Rate 101 H 12/25/19 15:20 Respir
== END 2019-12-25 15:43 | disposition home or self-care (01) ==
PROVIDERS: Emergency Provider Nurse Practitioner; PCP Family Medicine
DX: R25.2 Cramp and spasm (principal); I10 Essential (primary) hypertension; E78.00 Pure hypercholesterolemia, unspecified; K21.9 Gastro-esophageal reflux disease without esophagitis
CPT/HCPCS: 99211; G0463

== ENCOUNTER 2020-01-29 14:47 | Emergency (ER) | payer OTHER, SELFPAY ==
[2020-01-29 14:55] VITALS: BP 135/85; PULSE 99; RESP 18; TEMP 37.2; O2SAT 100
--- NOTE | 2020-01-29 14:58 | ED.ABDPAIN ---
HPI - Abdominal Pain General Chief Complaint: Abdominal Pain Stated Complaint: ulcer pain Time Seen by Provider: 01/29/20 15:02 Source: patient Mode of arrival: ambulatory Limitations: no limitations History of Present Illness HPI narrative: Laly Luque is a 44 yo female with a PMH of GERD, leg cramps, HTN, seasonal allergies, high cholesterol, who come to the urgent care with c/o ulcer pain .Has been seen for similar pain in the ER 2 weeks ago; according to note has not seen GI for this discomfort. Currently uses Tums and Protonix, states does not have a lot of relief last bowel movement 2 days ago. Denies smoking or drinking. Related Data Home Medications Medication Instructions Recorded Confirmed amlodipine 5 mg PO DAILY 07/17/19 12/25/19 ergocalciferol (vitamin D2) 1 mcg PO 2XW 11/17/19 12/25/19 medroxyprogesterone 150 mg IM [id number] 12/18/19 12/25/19 cetirizine 10 mg PO DAILY 12/19/19 12/25/19 pantoprazole 40 mg PO QAM 12/19/19 12/25/19 fluticasone propionate INTRANASAL 01/29/20 montelukast mg 01/29/20 pravastatin 01/29/20 Allergies Allergy/AdvReac Type Severity Reaction Status Date / Time No Known Allergies Allergy Verified 12/19/19 22:21 Review of Systems Review of Systems: Narrative: CONSTITUTIONAL: Denies fever, chills, sweats. EYES: Denies visual changes, redness, discharge. ENT: Denies rhinorrhea, congestion, sore throat, otalgia. CARDIOVASCULAR: Denies chest pain, palpitations, edema. RESPIRATORY: Denies dyspnea, wheezing, cough GASTROINTESTINAL:has epigastric pain, no abdominal pain, nausea, vomiting, diarrhea. GENITOURINARY: Denies dysuria, hematuria, abnormal discharge SKIN: Denies rash or itching. NEUROLOGIC: Denies numbness, or focal weakness. PSYCHIATRIC: Denies anxiety or depression. [facility] Past Medical History Medical History Diabetes Hypercholesteremia Hypertension Seasonal allergies Surgical History Surgical History No significant past surgical history Family History Family History Mother Hypertension Diabetes mellitus Social History Social History Smoking status: Never smoker Second hand tobacco smoke exposure: No Substance use: never Gender identity (if verbalized by the patient): Female Comments At time of signature, I agree with nursing past medical, surgical, social and family history. There is no relevant family history pertinent to the presenting complaint. Exam Narrative: Exam Narrative: GENERAL: This is a well-nourished, well-developed patient, in mild distress. HEAD: normocephalic, atraumatic. EYES: Sclera clear/white. Vision is grossly intact. EARS: External ears normal. Hearing grossly intact. NOSE: External nose normal without nasal discharge, nares without redness, no rhinorrhea. THROAT: Mucous membranes moist, NECK: Neck supple, CARDIOVASCULAR: Regular rate and rhythm without murmurs, gallops, or rubs. RESPIRATORY: Clear to auscultation. Breath sounds equal bilaterally. No wheezes, rales, or rhonchi. GASTROINTESTINAL: Abdomen soft, non-tender, epigastric pain but also indicates pain higher up in chest SKIN: warm, intact with no suspicious lesions or rash, good texture and turgor. NEURO: awake, alert, and oriented to person, place and time. There were no obvious focal neurologic abnormalities. Steady gait EXTREMITIES: Normal range of motion. BACK: Nontender without deformity Course Course Emergency Course: EKG done- RATE IS 89, NSR, NO DEVIATION, st CHANGES- NONSPECIFIC- IN INFERIOR LEADS Given Pepcid; none daily use of senna and MiraLAX if has constipation. Gave physician book for GI consult; if continues to have questionable chest gas , should return to PCP for re-evaluation. Vital Signs Vital signs: Vital Signs
[2020-01-29] MEDS: FAMOTIDINE 20 MG TABLET PO (15:22)
--- NOTE | 2020-01-29 15:38 | ECG_ITS ---
Measurements Intervals [place] Rate: 89 P: 72 [place]: 133 QRS: 30 QRSD: 90 T: 42 QT: 349 QTc: 425 Interpretive Statements SINUS RHYTHM NONSPECIFIC T-WAVE ABNORMALIT- ANTERIOR LEADS BASELINE ARTIFACT- III, AVF BORDERLINE ECG Electronically Signed On 01-29-2020 16:34:54 CDT by Alin Alba D.O.
== END 2020-01-29 15:42 | disposition home or self-care (01) ==
PROVIDERS: Emergency Provider Nurse Practitioner; PCP Family Medicine
DX: R10.13 Epigastric pain (principal); K59.09 Other constipation; E11.9 Type 2 diabetes mellitus without complications; E78.00 Pure hypercholesterolemia, unspecified; I10 Essential (primary) hypertension
CPT/HCPCS: 93005; 99213; A9270; G0463

== ENCOUNTER 2020-02-20 01:06 | Outpatient (CLI) | payer OTHER, SELFPAY ==
[2020-02-20 18:30] LABS: SARS-CoV-2 RNA PCR Negative
== END 2020-02-20 01:07 | disposition home or self-care (01) ==
LOC: ANHCOVIDDT 01:06
PROVIDERS: PCP Family Medicine; Visit Provider Internal Medicine Gastroenterology
DX: Z01.812 Encounter for preprocedural laboratory examination (principal); Z11.59 Encounter for screening for other viral diseases
CPT/HCPCS: 87635; C9803; U0003

== ENCOUNTER 2020-02-23 01:58 | Day surgery (SDC) | payer OTHER, SELFPAY ==
[2020-02-17 11:55] VITALS: BMI 26.8
[2020-02-23 11:42] VITALS: BP 149/91; PULSE 129; RESP 20; TEMP 36.8; O2SAT 100
[2020-02-23] MEDS: LACTATED RINGERS 1,000 ML 150 ML IV CONT (11:51)
--- NOTE | 2020-02-23 11:54 | WPDANESEPPF ---
Anes - Initial Pre Proc Eval Procedure: Operation Date: 02/23/20 12:15 Proposed Procedures p Esophagogastroduodenoscopy - Ricardo George MD Date/Time: 02/23/20 11:54 Surgeon: Ricardo George MD Pre Op Diagnosis: GERD, upper abd pain Patient Data Age: 44 Gender: F Height: 1.52 m Weight: 60.6 kg Last Vital Signs Temp 36.8 C 02/23/20 11:42 Pulse 129 H 02/23/20 11:42 Resp 20 02/23/20 11:42 BP 149/91 H 02/23/20 11:42 Pulse Ox 100 02/23/20 11:42 Allergies Allergy/AdvReac Type Severity Reaction Status Date / Time No Known Allergies Allergy Verified 02/23/20 11:39 Home Medications Medication Instructions Recorded Confirmed Type amlodipine 5 mg PO DAILY 07/17/19 02/17/20 History ergocalciferol (vitamin D2) See Rx Instructions .ROUTE .COMPLEX 11/17/19 02/23/20 History medroxyprogesterone 150 mg IM [id number] 12/18/19 02/23/20 History cetirizine 10 mg PO DAILY 12/19/19 02/23/20 History fluticasone propionate 1 spray INTRANASAL DAILY 01/29/20 02/23/20 History montelukast 10 mg PO HS 01/29/20 02/23/20 History pravastatin 10 mg PO DAILY 01/29/20 02/23/20 History linaclotide 72 mcg capsule 72 mcg PO DAILY #90 cap 02/04/20 02/23/20 Rx omeprazole 40 mg PO DAILY 02/17/20 02/23/20 History potassium chloride 10 meq PO DAILY 02/17/20 02/23/20 History Patient hx anesthesia problems: none Family hx anesthesia problems: none PMFSH Past Medical History Medical History (Updated 02/23/20 @ 07:45 by Vik Sanchez DO) Bloating Constipation Diabetes GERD (gastroesophageal reflux disease) Hypercholesteremia Hypertension Seasonal allergies Sickle cell trait Upper abdominal pain Surgical History Surgical History No significant past surgical history Social History Social History Smoking status: Never smoker Second hand tobacco smoke exposure: No Substance use: never Gender identity (if verbalized by the patient): Female Anes - Eval Final PreProcedure Day of Procedure 02/23/20 11:54 Patient weight: overweight Heart: regular rate and rhythm Lungs: clear to auscultation and normal air movement Airway: Mallampati scale class II Neurological: alert and oriented Last oral intake: >/= 8 hours ASA classification: III Emergent: no Anesthetic plan: proceed Anesthesia type and monitoring: general GIVS and standard monitoring Informed Consent: The patient's anesthetic plan and its attendant risks and benefits were discussed with the patient/family/POA. Questions were solicited and answers provided to the satisfaction of the patient/family/POA.
--- NOTE | 2020-02-23 12:42 | WPDHPUPDATE1 ---
History and Physical Update Update Date/Time: 02/23/20 12:42 History and Physical has been reviewed, including an updated exam of the patient. There are NO changes in the patient's condition. Risks, benefits, and alternatives have been discussed and questions answered. Patient agrees to proceed with procedure.
[2020-02-23 12:56] VITALS: BP 117/82; PULSE 98; RESP 28; O2SAT 100
[2020-02-23 13:06] VITALS: BP 134/89; PULSE 106; RESP 22; O2SAT 100
[2020-02-23 13:16] VITALS: BP 132/97; PULSE 101; RESP 24; O2SAT 99
[2020-02-23 13:26] VITALS: BP 132/95; PULSE 97; RESP 21; O2SAT 100
--- NOTE | 2020-02-23 13:40 | SUR.PHASEII ---
TALKED WITH DR. MCKEON ABOUT PT WANTING SAMPLES OF LINZESS DUE TO HER INSURANCE NOT COVERING. DR. MCKEON SAID YES AND TO CALL HIS OFFICE AND COULD GET SAMPLES FOR HER. LET PATIENT KNOW THAT I WOULD RUN TO HIS OFFICE TO GET SAMPLES FOR HER. OFFICE STAFF STATED THAT THEY ARE WORKING ON THIS WITH INSURANCE AND GAVE 3 SAMPLES OF LINZESS.
== END 2020-02-23 13:45 | disposition home or self-care (01) ==
PROVIDERS: PCP Family Medicine; Visit Provider Internal Medicine Gastroenterology
PROC: 0DJ08ZZ Inspection of Upper Intestinal Tract, Via Natural or Artificial Opening Endoscopic (ICD-10-PCS; CPT 43235; principal; 2020-02-23 12:15)
DX: K21.0 Gastro-esophageal reflux disease with esophagitis (principal); K29.50 Unspecified chronic gastritis without bleeding; K29.80 Duodenitis without bleeding; I10 Essential (primary) hypertension; E78.00 Pure hypercholesterolemia, unspecified; E11.9 Type 2 diabetes mellitus without complications; K59.00 Constipation, unspecified; D57.3 Sickle-cell trait
CPT/HCPCS: 43239; 88305; 88342; J2001; J2704; J7120

== ENCOUNTER 2020-02-27 14:54 | Emergency (ER) | payer OTHER, SELFPAY ==
[2020-02-27 15:12] VITALS: BP 132/83; PULSE 90; RESP 16; TEMP 37; O2SAT 100
--- NOTE | 2020-02-27 15:39 | ED.EAR ---
HPI - Ear Problem General Chief complaint: Ear Stated complaint: ear pain,dizzines Time Seen by Provider: 02/27/20 15:39 Source: patient Mode of arrival: ambulatory Limitations: no limitations History of Present Illness HPI Narrative: Laly lbaira 44 yo female with a PMH of HTN, seasonal allergies, GERD, asthma,high cholesterol,who comes to express care with L ear pain and feeling off balance x 1 day. States that she had an ear infection about 3 months ago and was given prednisone but her stomach was irritated by the prednisone prefers to have something other than that. She is asthmatic and takes her medication as prescribed Related Data Home Medications Medication Instructions Recorded Confirmed amlodipine 5 mg PO DAILY 07/17/19 02/17/20 ergocalciferol (vitamin D2) See Rx Instructions .ROUTE .COMPLEX 11/17/19 02/23/20 medroxyprogesterone 150 mg IM [id number] 12/18/19 02/23/20 cetirizine 10 mg PO DAILY 12/19/19 02/23/20 fluticasone propionate 1 spray INTRANASAL DAILY 01/29/20 02/23/20 montelukast 10 mg PO HS 01/29/20 02/23/20 pravastatin 10 mg PO DAILY 01/29/20 02/23/20 omeprazole 40 mg PO DAILY 02/17/20 02/23/20 potassium chloride 10 meq PO DAILY 02/17/20 02/23/20 Allergies Allergy/AdvReac Type Severity Reaction Status Date / Time No Known Allergies Allergy Verified 02/23/20 11:39 Review of Systems Review of Systems: Narrative: CONSTITUTIONAL: Denies fever, chills, sweats. EYES: Denies visual changes, redness, discharge. ENT: Has rhinorrhea, has congestion, sore throat, left otalgia. CARDIOVASCULAR: Denies chest pain, palpitations, edema. RESPIRATORY: Denies dyspnea, wheezing, cough GASTROINTESTINAL: Denies abdominal pain, nausea, vomiting, diarrhea. GENITOURINARY: Denies dysuria, hematuria, abnormal discharge SKIN: Denies rash or itching. NEUROLOGIC: Denies numbness, or focal weakness. PSYCHIATRIC: Denies anxiety or depression. [facility] Past Medical History Medical History Bloating Constipation Diabetes GERD (gastroesophageal reflux disease) Hypercholesteremia Hypertension Seasonal allergies Sickle cell trait Upper abdominal pain Surgical History Surgical History No significant past surgical history Social History Social History Smoking status: Never smoker Second hand tobacco smoke exposure: No Substance use: never Gender identity (if verbalized by the patient): Female Comments At time of signature, I agree with nursing past medical, surgical, social and family history. There is no relevant family history pertinent to the presenting complaint. Exam Narrative: Exam Narrative: GENERAL: This is a well-nourished, well-developed patient, in mild distress. Mild dizziness HEAD: normocephalic, atraumatic. EYES: PERRL. Sclera clear/white. Vision is grossly intact. EARS: External ears normal, auditory canals erythematous and without drainage, TMs bulging left greater than right. Hearing grossly intact. NOSE: External nose normal without nasal discharge, nares without redness, mild rhinorrhea. THROAT: Mucous membranes moist, posterior pharynx erythema NECK: Neck supple, CARDIOVASCULAR: Regular rate and rhythm without murmurs, gallops, or rubs. RESPIRATORY: Clear to auscultation. Breath sounds equal bilaterally. No wheezes, rales, or rhonchi. GASTROINTESTINAL: Abdomen soft, SKIN: warm, intact with no suspicious lesions or rash, good texture and turgor. NEURO: awake, alert, and oriented to person, place and time. There were no obvious focal neurologic abnormalities. Steady gait EXTREMITIES: Normal range of motion. BACK: Nontender without deformity Course Course Emergency Course: Started on polymyxin eardrops, meclizine, Mucinex Use eardrops and use meclizine. Patient is prednisone her stomach Follow-up with PCP Vital Signs
== END 2020-02-27 16:04 | disposition home or self-care (01) ==
PROVIDERS: Emergency Provider Nurse Practitioner; PCP Family Medicine
DX: H66.005 Acute suppurative otitis media without spontaneous rupture of ear drum, recurrent, left ear (principal); J01.11 Acute recurrent frontal sinusitis; E11.9 Type 2 diabetes mellitus without complications; K21.9 Gastro-esophageal reflux disease without esophagitis; E78.00 Pure hypercholesterolemia, unspecified; I10 Essential (primary) hypertension; D57.3 Sickle-cell trait
CPT/HCPCS: 99213; G0463

== ENCOUNTER 2020-03-04 15:00 | Outpatient (RCR) | payer OTHER, SELFPAY ==
--- NOTE | 2020-01-11 15:52 | PTOPEVAL ---
PHYSICAL THERAPY EVALUATION AND PLAN OF CARE 01-11-2020 The PT evaluation was completed for the diagnosis of back pain. Her plan of treatment is scheduled for 2x/week for 4 weeks. Thank you for referring Laly Luque to [facility]. Please review, sign, date and return this plan of care KYLEIGH. I agree with and certify that the following plan of care is medically necessary. Referring Physician Date Attending Provider: Mike Richmond MD *PT Outpatient Evaluation Start: 01/11/20 14:48 Document 01/11/20 14:48 HERMELINDA (Rec: 01/11/20 15:52 HERMELINDA [id number]) Outpatient Past Medical History Past Medical History Source of Past Medical History Patient Neurological History Hx Neurological Disorders No Significant History Cardiovascular History Hx Hypercholesterolemia Yes: meds control Hx Hypertension Yes: meds control Respiratory History Hx Respiratory Disorders No Significant History Gastrointestinal History Hx Gastroesophageal Reflux Disease Yes Genitourinary History Hx Genitourinary Disorders No Significant History Musculoskeletal History Hx Back Pain Yes: LBP, leg and knee pain; has had 7 children Hx Other Musculoskeletal Disorders Yes: carpal tunnel- to have surgery on L,not set for date Hematological History Hx Sickle Cell Disease Yes: sickle cell trait ; Endocrine History Hx Diabetes Yes: control with diet;have not taken meds ~ 1 month HEENT History Hx HEENT Disorders No Significant History Integumentary History Hx Skin Disorders No Significant History Reproductive History Hx Reproductive Disorders No Significant History Psychosocial History Hx Psychiatric Disorders No Significant History Pain History History of Any Previous or Ongoing No Significant History Instance of Pain Anesthesia History Hx Anesthesia Reactions No Significant History Other History Hx Other Medical Conditions Yes: new dx vit D deficiency; also take magnesium Evaluation Information Problem Diagnosis back and leg pain Onset December 2018 Subjective Information chronic back pain; have seen Query Text:As Reported By Patient/ primary dr only for LBP; Family Diagnostic Tests X-Rays For This Problem No MRI For This Problem No Other Tests For This Problem No Previous Treatments Previous Treatments For This Problem had PT last year--helped some Prior Level of Function Activity Level (Last 3 Months) 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
--- NOTE | 2020-01-28 14:57 | PCPTNOTE ---
Patient did not show up for scheduled appointment this date. called patient she had forgotten her appointment today. Reminded her of next appt on the .
--- NOTE | 2020-02-02 15:12 | PCPTNOTE ---
Patient did not show up for scheduled appointment this date.
--- NOTE | 2020-02-04 14:46 | PCPTNOTE ---
Patient called & cancelled scheduled appointment this date due to not feeling well.
--- NOTE | 2020-02-16 15:12 | PTOPEVAL ---
PHYSICAL THERAPY RE-EVALUATION AND UPDATED PLAN OF CARE 02-16-2020 Mrs. Luque has received 7 PT sessions, from January 10 to today, for the diagnosis of back pain, radicular into LE's. She called and canceled one and did not show for one appointment. Compared to the initial evaluation: pain rating is about the same, with continued radicular pain into R and L LE's; self assessment with the Oswstry has improved 10%; reported sleeping and standing tolerances have improved; flexibility of hamstrings is slightly less; piriformis and anterior hip-quads are about the same; increase in hip strength. PT is recommended to continue 2x/week for 3 weeks, to further increase trunk and LE strength, decrease spasms and radicular pain into LE's and progression of home exercises. Thank you for referring Laly Luque to [facility]. Please review, sign, date and return this updated plan of care [facility]. I agree with and certify that the following plan of care is medically necessary. Referring Physician Date Attending Provider: Mike Richmond MD *PT Outpatient Re-Evaluation Start: Document 02/16/20 14:40 HERMELINDA (Rec: 02/16/20 15:12 HERMELINDA [id number]) Subjective Information Laly reports: exercises help Query Text:As Reported By Patient/ her back feel better; they Family added potassium to her meds after blood work; wants to continue therapy to get back feeling better; Self assessment with the Oswestry Low back pain questionnaire is 48% limitation in activity level; Pain Assessment Timing of Pain Assessment Timing of Pain Assessment Assessment Pain Scale Pain Scale Used Numeric (1 - 10) Self Report Pain Assessment Bilateral Back Reported Pain Level 5 Pain Description Spasms,Tightness,Tingling Radicular Pain Location L> R LE: almost falling asleep /tired, different feeling Pain Frequency Chronic Other Pain Description L LE to foot and R to mid calf - radicular- intermittent Lowest Pain Intensity 0 Greatest Pain Intensity 7 Pain Aggravating Factors Weight Bearing/Standing Other Pain Aggravating Factors standing tolerance 3-4 hr; Pain Relief Interventions Used By Exercise,Inactivity/Rest, Patient Medication Other Alleviating Interventions taking tylenol; hot bath in epsom salt; Additional Pain Comments sleep through night; Pain Score Pain Score 5: Self Report Cervical and Lumbar ROM Lumbar ROM Lumbar Comments standing trunk: flex- fingers to toes- no incr pain; extension- WNL no increase pain; r
--- NOTE | 2020-02-25 14:24 | PCPTNOTE ---
pt called and cancelled due to having to work;
--- NOTE | 2020-03-30 13:21 | PCPTNOTE ---
PHYSICAL THERAPY DISCHARGE 03-30-2020 Attending Provider: Mike Richmond MD Patient:Laly Luque Date of :1975 Mrs. Luque has not returned for any further treatments since 03/04/2020, therefore she will be discharged at this time. She received a total of 8 PT sessions, for the diagnosis of low back pain, from January 10 to March 04. She called and canceled 2 and did not show for 2 scheduled appointments. The goals were not assessed. Thank you for referring Laly to [facility]. Please review, sign, date and return this discharge summary KYLEIGH. I have been updated about the patient's current status and I agree with discharge from the above service at this time. Referring Physician Date
== END 2020-03-30 15:15 | disposition home or self-care (01) ==
LOC: ANHPT 15:00
PROVIDERS: PCP Family Medicine; Visit Provider Family Medicine
DX: M79.604 Pain in right leg (principal)
CPT/HCPCS: 97110; 97140; 97161

== ENCOUNTER 2020-03-30 07:39 | Outpatient (CLI) | payer OTHER, SELFPAY ==
--- NOTE | ~2020-03-30 | NM_ITS ---
EXAM: NM gastric emptying study DATE: 03/30/2020 14:19 CDT INDICATION: Dominant all distention TECHNIQUE: A gastric emptying study was performed using the methodology of Lorenzo SOMMERS, et al. J Nucl Med 2007; 48:568-572. The patient was given a meal consisting of 2 scrambled eggs labeled with 1 mCi Tc-99m sulfur colloid, 2 slices of toast, two packages of jam, and approximately 120 mL of water. Si multaneous anterior and posterior 1-min images of the abdomen were obtained with the patient supine a t multiple time points over a total period of 4 hours. The geometric mean of anterior and posterior v iews was determined, and the percentage retention was calculated for each time point. COMPARISON: None. FINDINGS: Gastric retention of the radiotracer-labeled meal was 69%, 47%, and 5% at the 1-hour, 2-ho ur, and 4-hour time points, respectively. With this technique, apparent rapid gastric emptying is sug gested by <30% gastric retention at 1 hour. Delayed gastric emptying is defined by gastric retention of >90% at 1 hour, >60% retention at 2 hours, or >10% retention at 4 hours. IMPRESSION: 1. Normal gastric emptying. Reviewed, dictated and finalized at location A. IMPRESSION: 1. Normal gastric emptying.
== END 2020-03-30 07:40 | disposition home or self-care (01) ==
LOC: ANHIMG 07:41
PROVIDERS: PCP Family Medicine; Visit Provider Internal Medicine Gastroenterology
DX: E11.9 Type 2 diabetes mellitus without complications (principal); R10.10 Upper abdominal pain, unspecified; R14.0 Abdominal distension (gaseous)
CPT/HCPCS: 78264; A9541

== ENCOUNTER 2020-04-28 07:41 | Outpatient (CLI) | payer OTHER, SELFPAY ==
--- NOTE | ~2020-04-28 | US_ITS ---
EXAMINATION: US right upper quadrant EXAM DATE: 04/28/2020 08:28 INDICATION: Upper abdominal pain. TECHNIQUE: Multiple grayscale and Doppler images of the abdomen right upper quadrant were obtained (rossy y a technologist who performed the scan) and subsequently reviewed. There is no prior study for ann winkler. FINDINGS: The pancreatic head and body are normal in appearance. The pancreatic tail is not visualized. The l iver has normal echogenicity and contour. There are no focal liver lesions identified. There is no evidence of intrahepatic biliary duct dilation. Portal venous flow was seen in the hepatopedal, nor mal direction and has normal Doppler waveform. No right-sided hydronephrosis. Common bile duct measures 3 mm, which is normal. The gallbladder wall is normal in thickness, with ex pected amount of distention. No sonographic evidence of pericholecystic fluid. There is no cholelit hiases. Technologist performing exam reports patient did not demonstrate sonographic Chong's sign. Please note that this sign is less reliable in patients who have received pain medication. IMPRESSION: 1. Unremarkable abdominal ultrasound exam. Reviewed, dictated and finalized at location B.
== END 2020-04-28 07:42 | disposition home or self-care (01) ==
PROVIDERS: PCP Family Medicine; Visit Provider Internal Medicine Gastroenterology
DX: R10.10 Upper abdominal pain, unspecified (principal); R14.0 Abdominal distension (gaseous)
CPT/HCPCS: 76705

== ENCOUNTER 2020-06-23 19:50 | Emergency (ER) | payer OTHER, SELFPAY ==
--- NOTE | 2020-06-23 19:52 | ED.EAR ---
HPI - Ear Problem General Chief complaint: Ear Stated complaint: Left Ear Pain Time Seen by Provider: 06/23/20 20:02 Source: patient and RN notes reviewed Mode of arrival: ambulatory Limitations: no limitations History of Present Illness HPI Narrative: 44 old female presents with concern for left ear pain. Reports symptoms started 2 to 3 days ago with nasal congestion, drainage, ear fullness. Reports ear pain started today. Reports history of ear infections. Reports sinus pain, pressure. MD Complaint: ear pain Related Data Home Medications Medication Instructions Recorded Confirmed amlodipine 5 mg PO DAILY 07/17/19 06/23/20 ergocalciferol (vitamin D2) See Rx Instructions .ROUTE .COMPLEX 11/17/19 06/23/20 medroxyprogesterone 150 mg IM [id number] 12/18/19 06/23/20 cetirizine 10 mg PO DAILY 12/19/19 06/23/20 fluticasone propionate 1 spray INTRANASAL DAILY 01/29/20 06/23/20 montelukast 10 mg PO HS 01/29/20 06/23/20 pravastatin 10 mg PO DAILY 01/29/20 06/23/20 potassium chloride 10 meq PO DAILY 02/17/20 06/23/20 atorvastatin 20 mg PO DAILY 06/23/20 06/23/20 Allergies Allergy/AdvReac Type Severity Reaction Status Date / Time No Known Allergies Allergy Verified 06/23/20 19:52 Review of Systems Review of Systems: Narrative: CONSTITUTIONAL: Denies malaise, chills, sweats, or fever. EYES: Denies visual changes, redness, or discharge. ENT: Reports rhinorrhea, congestion, sinus pain, otalgia. Denies sore throat. CARDIOVASCULAR: Denies chest pain, palpitations, or edema. RESPIRATORY: Denies cough or dyspnea. GASTROINTESTINAL: Denies abdominal pain, nausea, vomiting, diarrhea SKIN: Denies rash or itching. MUSCULOSKELETAL: Denies myalgia. NEUROLOGIC: Denies headache. All systems reviewed & are unremarkable except as noted in HPI and below PMFSH Past Medical History Medical History (Updated 06/23/20 @ 20:11 by Akila Chapman NP) Bloating Constipation Diabetes Esophagitis GERD (gastroesophageal reflux disease) Hypercholesteremia Hypertension Seasonal allergies Sickle cell trait Upper abdominal pain Surgical History Surgical History No significant past surgical history Family History Family History Mother Hypertension Diabetes mellitus Social History Social History Smoking status: Never smoker Second hand tobacco smoke exposure: No Substance use: never Gender identity (if verbalized by the patient): Female Comments At time of signature, agree with nursing past medical, surgical, social and family history. There is no relevant family history pertinent to the presenting complaint Exam Narrative: Exam Narrative: GENERAL: Well-appearing, well-nourished, and in no acute distress. HEAD: Normocephalic EYES: PERRLA, conjunctivae clear ENT: Nares clear, turbinates edematous and erythematous, clear discharge. Mucous membranes moist. Right TM pearly barraza with dull light reflex, left TM erythematous and bulging; no tragal tenderness. Oropharynx not erythematous without lesions. Tonsils not enlarged and without exudate, no drooling, no hoarseness, no trismus, uvula midline. NECK: Supple. No lymphadenopathy CHEST: Clear to auscultation, breath sounds equal. No wheezing, rhonchi, rales, or stridor. No respiratory distress, speaks in full sentences. HEART: Regular rate and rhythm. No murmur heard. SKIN: Warm, dry, no rash. NEURO: Alert and oriented x3. PSYCH: Normal mood and affect Course Course Emergency Course: Patient is aware of diagnosis, understands and agrees to treatment plan. Anticipatory guidance given. Patient agrees to follow-up as directed and is aware of reasons to seek care at the emergency department. Portions of this record may have been created with voice recognition software Vital Signs Vital signs: Vital Signs Temperature 98.3 F 06/23/20
[2020-06-23 19:55] VITALS: BP 156/83; PULSE 90; RESP 18; TEMP 36.8; O2SAT 100
== END 2020-06-23 20:13 | disposition home or self-care (01) ==
PROVIDERS: Emergency Provider Nurse Practitioner; PCP Family Medicine
DX: H66.002 Acute suppurative otitis media without spontaneous rupture of ear drum, left ear (principal); E11.9 Type 2 diabetes mellitus without complications; K21.9 Gastro-esophageal reflux disease without esophagitis; E78.00 Pure hypercholesterolemia, unspecified; I10 Essential (primary) hypertension; D57.3 Sickle-cell trait
CPT/HCPCS: 99213; G0463

== ENCOUNTER 2020-08-04 09:46 | Emergency (ER) | payer OTHER, SELFPAY ==
[2020-08-04 10:06] VITALS: BP 125/82; PULSE 94; RESP 18; TEMP 36.8; O2SAT 100
--- NOTE | 2020-08-04 10:19 | ED.UPPEXIN ---
HPI - Extremity Injury (Upper) General Chief Complaint: Extremity Injury, Upper Stated Complaint: Left hand finger Time Seen by Provider: 08/04/20 10:19 Source: patient Mode of arrival: ambulatory Limitations: no limitations History of Present Illness HPI narrative: Laly Luque is a 44 yo female with a PMH of HTN, allergies, GERD, high cholesterol, [facility] of her right middle finger distal joint swelling and pain, its pain is 6 out of 10. She cannot identify any specific injury. Related Data Home Medications Medication Instructions Recorded Confirmed amlodipine 5 mg PO DAILY 07/17/19 06/23/20 ergocalciferol (vitamin D2) See Rx Instructions .ROUTE .COMPLEX 11/17/19 06/23/20 cetirizine 10 mg PO DAILY 12/19/19 06/23/20 montelukast 10 mg PO HS 01/29/20 06/23/20 pravastatin 10 mg PO DAILY 01/29/20 06/23/20 potassium chloride 10 meq PO DAILY 02/17/20 06/23/20 atorvastatin 20 mg PO DAILY 06/23/20 06/23/20 Depo-Provera 08/04/20 Allergies Allergy/AdvReac Type Severity Reaction Status Date / Time No Known Allergies Allergy Verified 06/23/20 19:52 Review of Systems Review of Systems: Narrative: CONSTITUTIONAL: Denies fever, chills, sweats. EYES: Denies visual changes, redness, discharge. ENT: Denies rhinorrhea, congestion, sore throat, otalgia. CARDIOVASCULAR: Denies chest pain, palpitations, edema. RESPIRATORY: Denies dyspnea, wheezing, cough GASTROINTESTINAL: Denies abdominal pain, nausea, vomiting, diarrhea. GENITOURINARY: Denies dysuria, hematuria, abnormal discharge SKIN: Denies rash or itching. NEUROLOGIC: Denies numbness, or focal weakness. PSYCHIATRIC: Denies anxiety or depression. L middle finer distal swelling PMFSH Past Medical History Medical History Bloating Constipation Diabetes Esophagitis GERD (gastroesophageal reflux disease) Hypercholesteremia Hypertension Seasonal allergies Sickle cell trait Upper abdominal pain Surgical History Surgical History No significant past surgical history Family History Family History Mother Hypertension Diabetes mellitus Social History Social History Smoking status: Never smoker Second hand tobacco smoke exposure: No Substance use: never Gender identity (if verbalized by the patient): Female Comments At time of signature, I agree with nursing past medical, surgical, social and family history. There is no relevant family history pertinent to the presenting complaint. Exam Narrative: Exam Narrative: GENERAL: This is a well-nourished, well-developed patient, in mild distress. HEAD: normocephalic, atraumatic. EYES: Sclera clear/white. Vision is grossly intact. EARS: External ears normal, Hearing grossly intact. NOSE: External nose normal without nasal discharge, nares without redness, no rhinorrhea. THROAT: Mucous membranes moist, NECK: Neck supple, CARDIOVASCULAR: Regular rate and rhythm without murmurs, gallops, or rubs. RESPIRATORY: Clear to auscultation. Breath sounds equal bilaterally. No wheezes, rales, or rhonchi. GASTROINTESTINAL: Abdomen soft, SKIN: warm, intact with no suspicious lesions or rash, good texture and turgor. NEURO: awake, alert, and oriented to person, place and time. There were no obvious focal neurologic abnormalities. Steady gait EXTREMITIES: Normal range of motion. Left middle finger mild swelling at distal joint, unable to fully bend or extend finger without pain, rated pain as 6/10 BACK: Nontender without deformity Course Course Emergency Course: Patient came here for soreness in the middle finger on left; also complaining of dryness of throat and due to wearing a mask Splint placed on left middle finger, will take Tylenol. Unable to take ibuprofen or Naprosyn t
--- NOTE | 2020-08-04 10:23 | PC.NURSE ---
stated is also concerned with sinus problems, has dry inner upper nose and mouth, hx of sinus problems. denied any other sx at this time.
== END 2020-08-04 10:38 | disposition home or self-care (01) ==
PROVIDERS: Emergency Provider Nurse Practitioner; PCP Family Medicine
DX: M77.8 Other enthesopathies, not elsewhere classified (principal); E11.9 Type 2 diabetes mellitus without complications; K21.9 Gastro-esophageal reflux disease without esophagitis; E78.00 Pure hypercholesterolemia, unspecified; D57.3 Sickle-cell trait; I10 Essential (primary) hypertension
CPT/HCPCS: 29130; 99212; G0463

== ENCOUNTER 2020-08-07 11:15 | Emergency (ER) | payer OTHER, SELFPAY ==
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
[2020-08-07 11:41] VITALS: BP 129/82; PULSE 82; RESP 16; TEMP 37.4; O2SAT 98
== END 2020-08-07 11:57 | disposition home or self-care (01) ==
PROVIDERS: Emergency Provider Nurse Practitioner; PCP Family Medicine
DX: S16.1XXA Strain of muscle, fascia and tendon at neck level, initial encounter (principal); V48.6XXA Car passenger injured in noncollision transport accident in traffic accident, initial encounter; S39.012A Strain of muscle, fascia and tendon of lower back, initial encounter; E11.9 Type 2 diabetes mellitus without complications; K21.9 Gastro-esophageal reflux disease without esophagitis; E78.00 Pure hypercholesterolemia, unspecified; I10 Essential (primary) hypertension; D57.3 Sickle-cell trait
CPT/HCPCS: 99213; G0463

== ENCOUNTER 2020-08-28 18:49 | Emergency (ER) | payer OTHER, SELFPAY ==
--- NOTE | ~2020-08-28 | XR_ITS ---
XR cervical spine 4-5V 08/28/2020 19:31 Indication: Neck pain Procedure: 4 views of the cervical spine Comparison: No prior studies for comparison. Findings: There is straightening of cervical lordosis, likely due to muscle spasm or patient position ing. Prominent ventral osteophytes at C5-6. No prevertebral soft tissue swelling. There are mild unci kyrie degenerative changes at C5-6. Odontoid process within normal limits. Lung apices are normal. Impression: 1: Mild cervical spondylosis at C5-6. Reviewed, dictated and finalized at location A. OTAPE RECORDING ENGINEER Impression: 1: Mild cervical spondylosis at C5-6.
[2020-08-28 19:07] VITALS: BP 128/77; PULSE 84; RESP 16; TEMP 36.2; O2SAT 100
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
== END 2020-08-28 19:46 | disposition home or self-care (01) ==
PROVIDERS: Emergency Provider Nurse Practitioner Family; PCP Family Medicine
DX: S13.4XXA Sprain of ligaments of cervical spine, initial encounter (principal); V43.52XA Car driver injured in collision with other type car in traffic accident, initial encounter; Z87.891 Personal history of nicotine dependence; E11.9 Type 2 diabetes mellitus without complications; K21.9 Gastro-esophageal reflux disease without esophagitis; E78.00 Pure hypercholesterolemia, unspecified; I10 Essential (primary) hypertension; D57.3 Sickle-cell trait
CPT/HCPCS: 72050; 99213; G0463

== ENCOUNTER 2021-12-11 18:03 | Emergency (ER) | payer OTHER, SELFPAY ==
[2021-12-11 18:13] VITALS: BP 133/86; PULSE 86; RESP 16; TEMP 36.6; O2SAT 100
--- NOTE | 2021-12-11 18:29 | ED.FEMALEGU ---
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 Has a history of diabetes and states that she gets bacterial vaginitis on a regular basis. 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 Also complaining of left ear pressure. Patient states she has tried her yeast infection pills and they did not work. Patient states she knows she has bacterial vaginitis and would like to just be treated, patient declined exam MD elicited complaint: vaginal discharge Related Data Home Medications Medication Instructions Recorded Confirmed amlodipine 5 mg PO DAILY 07/17/19 12/11/21 ergocalciferol (vitamin D2) See Rx Instructions .ROUTE .COMPLEX 11/17/19 12/11/21 cetirizine 10 mg PO DAILY 12/19/19 12/11/21 montelukast 10 mg PO HS 01/29/20 12/11/21 atorvastatin 20 mg PO DAILY 06/23/20 12/11/21 albuterol sulfate 2 inh INHALATION DIRECTED 08/07/20 12/11/21 fluticasone propionate 1 mcg INTRANASAL DAILY 08/07/20 12/11/21 famotidine 20 mg tablet 20 mg PO DAILY 09/28/21 12/11/21 Allergies Allergy/AdvReac Type Severity Reaction Status Date / Time No Known Allergies Allergy Verified 12/11/21 18:12 Review of Systems Review of Systems: All systems reviewed & are unremarkable except as noted in HPI and below Constitutional: Constitutional: Reports no additional constitutional complaints, Denies chills and Denies fatigue Eyes: Eyes: Reports no additional eye complaints ENT: Reports system reviewed and no additional complaints, except as documented Cardiovascular: Cardiovascular: Reports no additional cardiovascular complaints Respiratory: Respiratory: Reports no additional respiratory complaints Gastrointestinal: Gastrointestinal: Reports no additional gastrointestinal complaints, Denies abdominal pain, Denies diarrhea, Denies nausea and Denies vomiting Genitourinary: Genitourinary: Reports as per HPI, Denies hematuria, Denies nocturia, Denies dysuria, Denies flank pain and Reports vaginal discharge Musculoskeletal: Musculoskeletal: Reports no additional musculoskeletal complaints and Denies back pain Integumentary/Breasts: Skin/Breast: Reports system reviewed and no additional complaints, except as docu Neurologic: Reports system reviewed and no additional complaints, except as documented Psychiatric: Psychiatric: Reports no additional psychiatric complaints Endocrine: Endocrine: Denies fatigue Allergic/Immunologic: Allergic/Immunologic: Reports no additional allergic/immunologic complaints PMFSH Past Medical History Medical History (Updated 12/11/21 @ 21:03 by Akila Owens APRN) Bloating Constipation Diabetes Esophagitis GERD (gastroesophageal reflux disease) Hypercholesteremia Hypertension Nonerosive esophageal reflux disease Seasonal allergies Sickle cell trait Upper abdominal pain Surgical History Surgical History No significant past surgical history Family History Family History Mother Hypertension Diabetes mellitus Father Acute myocardial infarction Social History Social History Tobacco type: cigarettes Second hand tobacco smoke exposure: No Smoking end date: 07/22/15 Alcohol intake: current Substance use: never Gender identity (if verbalized by the patient): Female Sexual Orientation (if Verbalized by the Patient): Straight or Heterosexual Comments At the time of my signature, I reviewed and agree with the nursing past medical, surgic
== END 2021-12-11 18:41 | disposition home or self-care (01) ==
PROVIDERS: Emergency Provider Nurse Practitioner; PCP Family Medicine
DX: N76.0 Acute vaginitis (principal); H65.02 Acute serous otitis media, left ear; Z87.891 Personal history of nicotine dependence; E11.9 Type 2 diabetes mellitus without complications; K21.9 Gastro-esophageal reflux disease without esophagitis; E78.00 Pure hypercholesterolemia, unspecified; I10 Essential (primary) hypertension; D57.3 Sickle-cell trait
CPT/HCPCS: 99213; G0463

== ENCOUNTER 2022-02-04 17:31 | Emergency (ER) | payer OTHER, SELFPAY ==
[2022-02-04 17:43] VITALS: BP 134/86; PULSE 88; RESP 20; TEMP 36.4; O2SAT 100
--- NOTE | 2022-02-04 17:52 | ED.URI ---
HPI - URI/Sore Throat General Chief Complaint: Ear Stated Complaint: SOMMERS/EAR PAIN Time Seen by Provider: 02/04/22 17:52 Source: patient and RN notes reviewed Mode of arrival: ambulatory Limitations: no limitations History of Present Illness HPI Narrative: 46-year-old female presents to the [facility] with complaints of bilateral ear pain for the last 2 days. Patient denies any other symptoms. No nasal congestion, no nasal drainage, sore throat, headache, chest pain, cough, shortness of breath, abdominal pain. Related Data Home Medications Medication Instructions Recorded Confirmed amlodipine 5 mg tablet 5 mg PO DAILY 07/17/19 12/11/21 ergocalciferol (vitamin D2) 1,250 See Rx Instructions .Route .COMPLEX 11/17/19 12/11/21 mcg (50,000 unit) capsule cetirizine 10 mg tablet 10 mg PO DAILY 12/19/19 12/11/21 montelukast 10 mg tablet 10 mg PO HS 01/29/20 12/11/21 atorvastatin 20 mg tablet 20 mg PO DAILY 06/23/20 12/11/21 albuterol sulfate 90 mcg/actuation 2 inh inhalation DIRECTED 08/07/20 12/11/21 aerosol inhaler fluticasone propionate 50 1 mcg intranasal DAILY 08/07/20 12/11/21 mcg/actuation nasal spray,suspension famotidine 20 mg tablet 20 mg PO DAILY 09/28/21 12/11/21 Allergies Allergy/AdvReac Type Severity Reaction Status Date / Time No Known Allergies Allergy Verified 12/11/21 18:12 Review of Systems Review of Systems: All systems reviewed & are unremarkable except as noted in HPI and below Constitutional: Constitutional: Reports no additional constitutional complaints, Denies chills and Denies fever(s) Eyes: Eyes: Reports no additional eye complaints ENT: Reports as per HPI (Bilateral ear pain) Cardiovascular: Cardiovascular: Reports no additional cardiovascular complaints Respiratory: Respiratory: Reports no additional respiratory complaints Gastrointestinal: Gastrointestinal: Reports no additional gastrointestinal complaints Musculoskeletal: Musculoskeletal: Reports no additional musculoskeletal complaints Integumentary/Breasts: Skin/Breast: Reports system reviewed and no additional complaints, except as docu Neurologic: Reports system reviewed and no additional complaints, except as documented Psychiatric: Psychiatric: Reports no additional psychiatric complaints Allergic/Immunologic: Allergic/Immunologic: Reports no additional allergic/immunologic complaints PMFSH Past Medical History Medical History Bloating Constipation Diabetes Esophagitis GERD (gastroesophageal reflux disease) Hypercholesteremia Hypertension Nonerosive esophageal reflux disease Seasonal allergies Sickle cell trait Upper abdominal pain Surgical History Surgical History No significant past surgical history Family History Family History Mother Hypertension Diabetes mellitus Father Acute myocardial infarction Social History Social History Tobacco type: cigarettes Second hand tobacco smoke exposure: No Smoking end date: 07/22/15 Alcohol intake: current Substance use: never Gender identity (if verbalized by the patient): Female Sexual Orientation (if Verbalized by the Patient): Straight or Heterosexual Comments At the time of my signature, I reviewed and agree with the nursing past medical, surgical, social, and family history. There is no relevant family history pertinent to the patient complaint. Exam Const: General: healthy appearing, no acute distress and alert Nutritional Appearance: well nourished and obese Orientation/consciousness: patient oriented x3 Limitations: no limitations HENMT: Head: normal to inspection Ears: external ears normal, EAC's normal, mastoids normal and TM abnormal with fluid behind the TM bilateral; not bulging, not bullous
== END 2022-02-04 18:24 | disposition home or self-care (01) ==
PROVIDERS: Emergency Provider Nurse Practitioner; PCP Family Medicine
DX: H65.03 Acute serous otitis media, bilateral (principal); Z87.891 Personal history of nicotine dependence; E11.9 Type 2 diabetes mellitus without complications; K21.9 Gastro-esophageal reflux disease without esophagitis; E78.00 Pure hypercholesterolemia, unspecified; I10 Essential (primary) hypertension; D57.3 Sickle-cell trait
CPT/HCPCS: 99213; G0463

== ENCOUNTER 2022-02-06 14:54 | Outpatient (CLI) | payer OTHER, SELFPAY ==
--- NOTE | ~2022-02-06 | MM_ITS ---
EXAMINATION: MM screening viri BI w yamila HISTORY: Screening TECHNIQUE: Craniocaudal and mediolateral oblique 3-D tomosynthesis images were obtained and synthetic 2-D images were generated. CAD analysis was submitted and interpreted. COMPARISON: No prior mammogram is available for comparison at this institution. BREAST PARENCHYMAL COMPOSITION: There are scattered areas of fibroglandular density. FINDINGS: There is no evidence of suspicious mass, calcification, or architectural distortion to sugg est malignancy in either breast. There has been no suspicious interval change. IMPRESSION: 1. No mammographic evidence of malignancy. 2. Recommend routine screening mammography in one year. BI-RADS Category 1: Negative Reviewed, dictated and finalized at location A.
== END 2022-02-06 14:55 | disposition home or self-care (01) ==
LOC: ANHIMG 14:56
PROVIDERS: PCP Family Medicine; Visit Provider Family Medicine
DX: Z12.31 Encounter for screening mammogram for malignant neoplasm of breast (principal)
CPT/HCPCS: 77063; 77067

== ENCOUNTER 2022-07-05 10:53 | Emergency (ER) | payer OTHER, SELFPAY ==
[2022-07-05 11:06] VITALS: BP 129/80; PULSE 92; RESP 16; TEMP 36.4; O2SAT 99
--- NOTE | 2022-07-05 11:20 | ED.URI ---
HPI - URI/Sore Throat General Chief Complaint: Upper Respiratory Infection Stated Complaint: Ears Irritation, Bodyaches Time Seen by Provider: 07/05/22 11:22 Source: patient and RN notes reviewed Mode of arrival: ambulatory Limitations: no limitations History of Present Illness HPI Narrative: 46-year-old female presented for complaint of headache, body aches, sinus pressure/congestion. Endorses left ear pressure. Onset 2 days. Denies cough, shortness of breath, nausea, vomiting, diarrhea, fever chills. She has taken [id number] sinus medication without significant relief. She endorses her family has had illnesses, stating her has a fever. MD elicited complaint: cough Related Data Home Medications Medication Instructions Recorded Confirmed amlodipine 5 mg tablet 5 mg PO DAILY 07/17/19 07/05/22 ergocalciferol (vitamin D2) 1,250 See Rx Instructions .Route .COMPLEX 11/17/19 07/05/22 mcg (50,000 unit) capsule cetirizine 10 mg tablet 10 mg PO DAILY 12/19/19 07/05/22 montelukast 10 mg tablet 10 mg PO HS 01/29/20 07/05/22 atorvastatin 20 mg tablet 20 mg PO DAILY 06/23/20 07/05/22 albuterol sulfate 90 mcg/actuation 2 inh inhalation DIRECTED 08/07/20 07/05/22 aerosol inhaler fluticasone propionate 50 1 mcg intranasal DAILY 08/07/20 07/05/22 mcg/actuation nasal spray,suspension famotidine 20 mg tablet 20 mg PO DAILY 09/28/21 07/05/22 Allergies Allergy/AdvReac Type Severity Reaction Status Date / Time No Known Allergies Allergy Verified 07/05/22 11:14 Review of Systems Review of Systems: ROS per HPI [facility] Past Medical History Medical History Bloating Constipation Diabetes Esophagitis GERD (gastroesophageal reflux disease) Hypercholesteremia Hypertension Nonerosive esophageal reflux disease Seasonal allergies Sickle cell trait Upper abdominal pain Surgical History Surgical History No significant past surgical history Family History Family History Mother Hypertension Diabetes mellitus Father Acute myocardial infarction Social History Social History Tobacco type: cigarettes Second hand tobacco smoke exposure: No Smoking end date: 07/22/15 Alcohol intake: current Substance use: never Gender identity (if verbalized by the patient): Female Sexual Orientation (if Verbalized by the Patient): Straight or Heterosexual Exam Narrative: GENERAL: Ill-appearing, nontoxic no acute distress. HEAD: Normocephalic EYES: PERRLA, conjunctivae clear ENT: Mucous membranes moist. TMs pearly barraza with dull light reflex bilaterally; no tragal tenderness. Oropharynx erythematous without lesions or exudate, no drooling, no hoarseness, no trismus, uvula midline. NECK: Supple. No lymphadenopathy CHEST: Clear to auscultation, breath sounds equal. No wheezing, rhonchi, rales, or stridor. No respiratory distress, speaks in full sentences. HEART: Regular rate and rhythm. No murmur heard. SKIN: Warm, dry, no rash. NEURO: Alert and oriented x3. PSYCH: Normal mood and affect Course Course Emergency Course: Patient is aware of diagnosis, understands and agrees to treatment plan. Anticipatory guidance given. Patient agrees to follow-up as directed and is aware of reasons to seek care at the emergency department. Portions of this record may have been created with voice recognition software Level of Care: Express Care Visit Vital Signs Vital signs: Vital Signs Temperature 97.6 F 07/05/22 11:06 Pulse Rate 92 07/05/22 11:06 Respiratory Rate 16 07/05/22 11:06 Blood Pressure 129/80 07/05/22 11:06 Pulse Oximetry 99 07/05/22 11:06 Oxygen Delivery Room Air 07/05/22 11:06 Temperature 97.6 F 07/05/22 11:06 Pulse Rate 92 07/05/22
== END 2022-07-05 11:53 | disposition home or self-care (01) ==
PROVIDERS: Emergency Provider Nurse Practitioner Family; PCP Family Medicine
DX: B34.9 Viral infection, unspecified (principal); Z20.822 Contact with and (suspected) exposure to COVID-19; E11.9 Type 2 diabetes mellitus without complications; K21.9 Gastro-esophageal reflux disease without esophagitis; E78.00 Pure hypercholesterolemia, unspecified; I10 Essential (primary) hypertension; D57.3 Sickle-cell trait; Z87.891 Personal history of nicotine dependence
CPT/HCPCS: 87426; 87804; 99213; C9803; G0463

== ENCOUNTER 2022-11-11 03:38 | Emergency (ER) | payer OTHER, SELFPAY ==
[2022-11-11] VITALS (27 sets, daily range): BP systolic 99–142; BP diastolic 63–98; PULSE 90–115; RESP 15–25; TEMP 36.6–36.9; O2SAT 98–100
--- NOTE | 2022-11-11 03:58 | ED.GENADULT ---
HPI - General Adult General Chief complaint: Allergic Reaction Stated complaint: allergic reaction Time Seen by Provider: 11/11/22 03:51 History of Present Illness HPI narrative: 47-year-old female history of allergy to shrimp presented with facial swelling in the setting of eating shrimp. Per patient she has known shrimp allergy, however thought that there was a specific type restaurant that she was able to eat. Around 8 PM she had the shrimp that she believed she was not allergic to and went to bed. Prior to ED presentation she woke up noticed that she had facial swelling, so presented to the ED for further evaluation. She does not have an EpiPen at home. She was not given anything on the way here. She reports facial swelling and throats raspiness. She denied chest pain, shortness of breath, nausea, vomiting, diarrhea, fevers, chills, dysuria, hematuria. Past medical history: Diabetes, hypertension, hyperlipidemia Allergies: Shrimp, no known drug allergies Social: Denied smoking, recreational drugs Related Data Home Medications Medication Instructions Recorded Confirmed amlodipine 5 mg tablet 5 mg PO DAILY 07/17/19 07/05/22 ergocalciferol (vitamin D2) 1,250 See Rx Instructions .Route .COMPLEX 11/17/19 07/05/22 mcg (50,000 unit) capsule cetirizine 10 mg tablet 10 mg PO DAILY 12/19/19 07/05/22 montelukast 10 mg tablet 10 mg PO HS 01/29/20 07/05/22 atorvastatin 20 mg tablet 20 mg PO DAILY 06/23/20 07/05/22 albuterol sulfate 90 mcg/actuation 2 inh inhalation DIRECTED 08/07/20 07/05/22 aerosol inhaler fluticasone propionate 50 1 mcg intranasal DAILY 08/07/20 07/05/22 mcg/actuation nasal spray,suspension famotidine 20 mg tablet 20 mg PO DAILY 09/28/21 07/05/22 Allergies Allergy/AdvReac Type Severity Reaction Status Date / Time No Known Allergies Allergy Verified 07/05/22 11:14 Review of Systems Review of Systems: See HPI PMF Past Medical History Medical History Bloating Constipation Diabetes Esophagitis GERD (gastroesophageal reflux disease) Hypercholesteremia Hypertension Nonerosive esophageal reflux disease Seasonal allergies Sickle cell trait Upper abdominal pain Surgical History Surgical History No significant past surgical history Family History Family History Mother Hypertension Diabetes mellitus Father Acute myocardial infarction Social History Social History Tobacco type: cigarettes Second hand tobacco smoke exposure: No Smoking end date: 07/22/15 Alcohol intake: current Substance use: never Living arrangements: with family Occupation/Education: occupation Gender identity (if verbalized by the patient): Female Sexual Orientation (if Verbalized by the Patient): Straight or Heterosexual Exam Narrative: APPEARANCE: Alert, calm and cooperative, no acute distress, phonating, sitting comfortably during visit HEAD: atraumatic EYES: Swelling to bilateral eyelids, no oropharyngeal swelling, handling secretions, uvula midline, no stridor, pupils equal round an reactive to light, extra ocular movements intact, no conjunctival injection NOSE: Normal no drainage NECK: Supple, without meningismus RESPIRATORY: Mild bilateral expiratory wheezing, breathing comfortably, speaking full sentences CARDIOVASCULAR: Regular rate and rhythm, no visible jugular venous distension ABDOMINAL: Soft, nontender, nondistended, no guarding, no rebound/peritoneal signs, no costovertebral tenderness to palpation BACK: no midline tenderness to palpation, no step offs EXTREMITIES: No edema, palpable peripheral pulses, warm, well perfused, no tenderness to bilateral calves. NEURO: Alert, moving all extremities symmetrically, ambulating with SKIN:: Warm, dry. Normal color
[2022-11-11] MEDS: EPINEPHrine HCL INJ 1 MG/ML AMPUL 0.3 MG IM (04:14)
[2022-11-11] MEDS: SODIUM CHLORIDE 0.9% IV 1,000 ML 999 ML IV CONT (04:14)
[2022-11-11] MEDS: diphenhydrAMINE HCl INJ 50 MG/ML VIAL IV PUSH (04:15)
[2022-11-11] MEDS: FAMOTIDINE 20 MG/2 ML VIAL IV PUSH (04:16)
[2022-11-11] MEDS: methylPREDNISolone SOD SUCC 125 MG VIAL IV PUSH (04:16)
[2022-11-11] MEDS: ALBUTEROL SULFATE NEB 2.5 MG/3 ML INH INHALATION (04:27)
== END 2022-11-11 09:47 | disposition home or self-care (01) ==
PROVIDERS: Emergency Provider Emergency Medicine; PCP Family Medicine
DX: T78.02XA Anaphylactic reaction due to shellfish (crustaceans), initial encounter (principal); I10 Essential (primary) hypertension; E11.9 Type 2 diabetes mellitus without complications; Z87.891 Personal history of nicotine dependence
CPT/HCPCS: 94640; 96361; 96372; 96374; 96375; 99284; J0171; J1200; J2930; J7030

== ENCOUNTER 2023-02-10 16:50 | Emergency (ER) | payer OTHER, SELFPAY ==
[2023-02-10 17:02] VITALS: BP 118/73; PULSE 108; RESP 16; TEMP 37; O2SAT 100
--- NOTE | 2023-02-10 17:17 | ED.FEMALEGU ---
HPI - Female Genitourinary General Chief complaint: Urogenital-Female Stated complaint: Vaginal Problems Time Seen by Provider: 02/10/23 17:17 Source: patient Mode of arrival: ambulatory Limitations: no limitations History of Present Illness HPI Narrative: 47 yo F presents with c/o vaginal itching for 2 days. Reports some white clumpy discharge. Hx of similar symptoms with yeast infection. Has had yeast infection in the past when BS elevated. has not checked BS for several wks and reports has been eating bad. No concerns for STIs. Denies vaginal odor. States yeast infection creams make her irritated and prefers diflucan. All systems reviewed and negative except as noted above. Related Data Home Medications Medication Instructions Recorded Confirmed amlodipine 5 mg tablet 5 mg PO DAILY 07/17/19 02/10/23 ergocalciferol (vitamin D2) 1,250 See Rx Instructions .Route .COMPLEX 11/17/19 02/10/23 mcg (50,000 unit) capsule cetirizine 10 mg tablet 10 mg PO DAILY 12/19/19 02/10/23 montelukast 10 mg tablet 10 mg PO HS 01/29/20 02/10/23 atorvastatin 20 mg tablet 20 mg PO DAILY 06/23/20 02/10/23 albuterol sulfate 90 mcg/actuation 2 inh inhalation DIRECTED 08/07/20 02/10/23 aerosol inhaler fluticasone propionate 50 1 mcg intranasal DAILY 08/07/20 02/10/23 mcg/actuation nasal spray,suspension famotidine 20 mg tablet 20 mg PO DAILY 09/28/21 02/10/23 Allergies Allergy/AdvReac Type Severity Reaction Status Date / Time No Known Allergies Allergy Verified 02/10/23 17:04 Review of Systems Review of Systems: CONSTITUTIONAL: Denies fever, chills, or sweats. EYES: Denies visual changes, redness, or discharge. ENT: Denies rhinorrhea, congestion, sore throat, or otalgia. CARDIOVASCULAR: Denies chest pain, palpitations, or edema. RESPIRATORY: Denies cough or dyspnea. GASTROINTESTINAL: Denies abdominal pain, nausea, vomiting, or diarrhea. GENITOURINARY: Denies dysuria or hematuria. Reports vaginal itching and white discharge. SKIN: Denies rash or itching. MUSCULOSKELETAL: Denies back pain, joint pain, or myalgia. NEUROLOGIC: Denies headache, numbness, or weakness. PSYCHIATRIC: Denies anxiety or depression. All other systems reviewed are negative, except as documented in HPI. [facility] Past Medical History Medical History Bloating Constipation Diabetes Esophagitis GERD (gastroesophageal reflux disease) Hypercholesteremia Hypertension Nonerosive esophageal reflux disease Seasonal allergies Sickle cell trait Upper abdominal pain Surgical History Surgical History No significant past surgical history Family History Family History Mother Hypertension Diabetes mellitus Father Acute myocardial infarction Social History Social History Tobacco type: cigarettes Second hand tobacco smoke exposure: No Smoking end date: 07/22/15 Alcohol intake: current Substance use: never Living arrangements: with family Occupation/Education: occupation Gender identity (if verbalized by the patient): Female Sexual Orientation (if Verbalized by the Patient): Straight or Heterosexual Comments At time of signature, agree with nursing past medical, surgical, social and family history. There is no relevant family history pertinent to the presenting complaint. Exam Narrative: GENERAL: This is a well-nourished, well-developed patient, in no apparent distress. HEAD: normocephalic, atraumatic. EYES: PERRL. Sclera clear/white. Vision is grossly intact. EARS: External ears normal NOSE: External nose normal NECK: Neck supple, non-tender without lymphadenopathy, masses or thyromegaly. CARDIOVASCULAR: Regular rate and rhythm without murmurs, gallops, or rubs. RESPIRATORY: Clear to auscultation. B
[2023-02-10 17:29] LABS: Glucose Point of Care 140 mg/dl (65-105)
== END 2023-02-10 17:30 | disposition home or self-care (01) ==
PROVIDERS: Emergency Provider Nurse Practitioner Family; PCP Family Medicine
DX: B37.31 Acute candidiasis of vulva and vagina (principal); Z87.891 Personal history of nicotine dependence; E11.9 Type 2 diabetes mellitus without complications; K21.9 Gastro-esophageal reflux disease without esophagitis; E78.00 Pure hypercholesterolemia, unspecified; I10 Essential (primary) hypertension; D57.3 Sickle-cell trait; K20.90 Esophagitis, unspecified without bleeding
CPT/HCPCS: 82948; 99213; G0463

== ENCOUNTER 2023-03-02 08:41 | Emergency (ER) | payer OTHER, SELFPAY ==
[2023-03-02 08:55] VITALS: BP 137/85; PULSE 80; RESP 12; TEMP 37.2; O2SAT 100
--- NOTE | 2023-03-02 09:47 | ED.URI ---
HPI - URI/Sore Throat General Chief Complaint: Headache Stated Complaint: headache, earache Time Seen by Provider: 03/02/23 09:48 Source: patient and RN notes reviewed Mode of arrival: ambulatory Limitations: no limitations History of Present Illness HPI Narrative: 47-year-old female presents with concern for 2 week history of sinus congestion, pressure. Reports she feels like she is having left facial pain for the last 3 days, ear fullness. She reports she has been taking allergy medicine without relief. She reports hoarse voice, denies sore throat. She reports she also feels like she is getting an outbreak of her genital herpes. She does not have any refills of valacyclovir. MD elicited complaint: nasal congestion and sinus pain Related Data Home Medications Medication Instructions Recorded Confirmed amlodipine 5 mg tablet 5 mg PO DAILY 07/17/19 03/02/23 cetirizine 10 mg tablet 10 mg PO DAILY 12/19/19 03/02/23 atorvastatin 20 mg tablet 20 mg PO DAILY 06/23/20 03/02/23 albuterol sulfate 90 mcg/actuation 2 inh inhalation DIRECTED 08/07/20 03/02/23 aerosol inhaler valacyclovir 500 mg tablet 500 mg PO PRN PRN genital herpes 03/02/23 03/02/23 Allergies Allergy/AdvReac Type Severity Reaction Status Date / Time No Known Allergies Allergy Verified 03/02/23 09:13 Review of Systems Review of Systems: CONSTITUTIONAL: Reports malaise. Denies chills, sweats, or fever. EYES: Denies visual changes, redness, or discharge. ENT: Reports rhinorrhea, congestion, sinus pain ear fullness. Denies otalgia and sore throat. CARDIOVASCULAR: Denies chest pain, palpitations, or edema. RESPIRATORY: Reports cough. Denies dyspnea. GASTROINTESTINAL: Denies abdominal pain, nausea, vomiting, diarrhea SKIN: Reports she feels a herpes outbreak flaring MUSCULOSKELETAL: Denies myalgia. NEUROLOGIC: Denies headache. All systems reviewed & are unremarkable except as noted in HPI and below PMFSH Past Medical History Medical History Bloating Constipation Diabetes Esophagitis GERD (gastroesophageal reflux disease) Hypercholesteremia Hypertension Nonerosive esophageal reflux disease Seasonal allergies Sickle cell trait Upper abdominal pain Surgical History Surgical History No significant past surgical history Family History Family History Mother Hypertension Diabetes mellitus Father Acute myocardial infarction Social History Social History Tobacco type: cigarettes Second hand tobacco smoke exposure: No Smoking end date: 07/22/15 Alcohol intake: current Substance use: never Living arrangements: with family Occupation/Education: occupation Gender identity (if verbalized by the patient): Female Sexual Orientation (if Verbalized by the Patient): Straight or Heterosexual Comments At time of signature, agree with nursing past medical, surgical, social and family history. There is no relevant family history pertinent to the presenting complaint Exam Narrative: GENERAL: Well-appearing, well-nourished, and in no acute distress. HEAD: Normocephalic EYES: PERRLA, conjunctivae clear ENT: Nares clear, turbinates edematous and erythematous on the left, sinus tenderness. Mucous membranes moist. TM pearly barraza with dull light reflex bilaterally; no tragal tenderness. Oropharynx not erythematous without lesions. Tonsils not enlarged and without exudate, no drooling, no hoarseness, no trismus, uvula midline. NECK: Supple. No lymphadenopathy CHEST: Clear to auscultation, breath sounds equal. No wheezing, rhonchi, rales, or stridor. No respiratory distress, speaks in full sentences. HEART: Regular rate and rhythm. No murmur heard. SKIN: Warm, dry, no rash. NEURO: Alert and oriented x3. PSYCH: Nor
== END 2023-03-02 10:20 | disposition home or self-care (01) ==
PROVIDERS: Emergency Provider Nurse Practitioner; PCP Family Medicine
DX: J01.90 Acute sinusitis, unspecified (principal); A60.00 Herpesviral infection of urogenital system, unspecified; E11.9 Type 2 diabetes mellitus without complications; K21.9 Gastro-esophageal reflux disease without esophagitis; E78.00 Pure hypercholesterolemia, unspecified; I10 Essential (primary) hypertension; D57.3 Sickle-cell trait; Z87.891 Personal history of nicotine dependence
CPT/HCPCS: 99213; G0463

== ENCOUNTER 2023-03-10 08:21 | Emergency (ER) | payer OTHER, SELFPAY ==
[2023-03-10 08:31] VITALS: BP 121/75; PULSE 87; RESP 16; TEMP 36.7; O2SAT 100
--- NOTE | 2023-03-10 08:35 | ED.FEMALEGU ---
HPI - Female Genitourinary General Chief complaint: Urogenital-Female Stated complaint: Vaginal Problems Time Seen by Provider: 03/10/23 08:35 Source: patient Mode of arrival: ambulatory Limitations: no limitations History of Present Illness HPI Narrative: Laly is a 47-year-old patient presenting to the clinic today with complaints of vaginal issues. She reports she received some antibiotics a week ago and is now having some white vaginal discharge and itching. Does get frequent vaginal yeast infections when taking antibiotics. She reports that she told the provider at that time and they told her to come back if she develops symptoms. Patient reports that she cannot tolerate the [id number] creams as this causes her vaginal discomfort. Related Data Home Medications Medication Instructions Recorded Confirmed amlodipine 5 mg tablet 5 mg PO DAILY 07/17/19 03/02/23 cetirizine 10 mg tablet 10 mg PO DAILY 12/19/19 03/02/23 atorvastatin 20 mg tablet 20 mg PO DAILY 06/23/20 03/02/23 albuterol sulfate 90 mcg/actuation 2 inh inhalation DIRECTED 08/07/20 03/02/23 aerosol inhaler valacyclovir 500 mg tablet 500 mg PO PRN PRN genital herpes 03/02/23 03/02/23 Augmentin 03/10/23 metformin 500 mg tablet mg 03/10/23 Allergies Allergy/AdvReac Type Severity Reaction Status Date / Time No Known Allergies Allergy Verified 03/10/23 08:39 Review of Systems Review of Systems: Pertinent positives per HPI. Patient denies any fever, chills, rash, headache, visual changes, dizziness, cough, runny nose, sore throat, shortness of breath, chest pain, palpitations, nausea, vomiting, diarrhea, constipation, abdominal pain, or any urinary issues. [facility] Past Medical History Medical History Bloating Constipation Diabetes Esophagitis GERD (gastroesophageal reflux disease) Hypercholesteremia Hypertension Nonerosive esophageal reflux disease Seasonal allergies Sickle cell trait Upper abdominal pain Surgical History Surgical History No significant past surgical history Family History Family History Mother Hypertension Diabetes mellitus Father Acute myocardial infarction Social History Social History Tobacco type: cigarettes Second hand tobacco smoke exposure: No Smoking end date: 07/22/15 Alcohol intake: current Substance use: never Living arrangements: with family Occupation/Education: occupation Gender identity (if verbalized by the patient): Female Sexual Orientation (if Verbalized by the Patient): Straight or Heterosexual Comments At the time of my signature, I reviewed and agree with the nursing past medical, surgical, social, and family history. There is no relevant family history pertinent to the patient complaint. Exam Narrative: General: Well-developed, well nourished, in no apparent distress Head: Normocephalic, atraumatic. Cardio: Regular rate and rhythm, s1 and s2 normal, no murmur appreciated. Resp: Clear to auscultation bilaterally, no rhonchi, rales, wheezing or rubs. Abdomen: Soft, pliable, bowel sounds present in all quadrants, non-tender to palpation, no CVAT tenderness. : Deferred Course Course Emergency Course: Portions of this record may have been created with voice recognition software. Level of Care: Express Care Visit Vital Signs Vital signs: Vital Signs Temperature 36.7 C 03/10/23 08:31 Pulse Rate 87 03/10/23 08:31 Respiratory Rate 16 03/10/23 08:31 Blood Pressure 121/75 03/10/23 08:31 Pulse Oximetry 100 03/10/23 08:31 Oxygen Delivery Room Air 03/10/23 08:31 Temperature 36.7 C 03/10/23 08:31 Pulse Rate 87 03/10/23 08:31 Respiratory Rate 16 03/10/23 08:31
== END 2023-03-10 08:50 | disposition home or self-care (01) ==
PROVIDERS: Emergency Provider Nurse Practitioner Family; PCP Family Medicine
DX: B37.31 Acute candidiasis of vulva and vagina (principal); Z87.891 Personal history of nicotine dependence; E11.9 Type 2 diabetes mellitus without complications; K21.9 Gastro-esophageal reflux disease without esophagitis; E78.00 Pure hypercholesterolemia, unspecified; I10 Essential (primary) hypertension; D57.3 Sickle-cell trait
CPT/HCPCS: 99213; G0463

== ENCOUNTER 2023-04-29 09:17 | Emergency (ER) | payer MEDICAID, SELFPAY ==
--- NOTE | 2023-04-29 09:23 | ED.URI ---
HPI - URI/Sore Throat General Chief Complaint: Upper Respiratory Infection Stated Complaint: cough,headache Time Seen by Provider: 04/29/23 10:02 Source: patient and RN notes reviewed Mode of arrival: ambulatory Limitations: no limitations History of Present Illness HPI Narrative: 47-year-old female presents with concern for headache, cough, feeling tired this started yesterday. In a separate complaint she reports vaginal odor, itchiness, fishy smelling odor. She is diabetic and reports history of BV and yeast. Reports when she takes antibiotic for BV she typically gets these. MD elicited complaint: cough and nasal congestion Related Data Home Medications Medication Instructions Recorded Confirmed amlodipine 5 mg tablet 5 mg PO DAILY 07/17/19 03/02/23 atorvastatin 20 mg tablet 20 mg PO DAILY 06/23/20 03/02/23 albuterol sulfate 90 mcg/actuation 2 inh inhalation DIRECTED 08/07/20 03/02/23 aerosol inhaler valacyclovir 500 mg tablet 500 mg PO PRN PRN genital herpes 03/02/23 03/02/23 metformin 500 mg tablet mg 03/10/23 ergocalciferol (vitamin D2) 1,250 04/29/23 mcg (50,000 unit) capsule Allergies Allergy/AdvReac Type Severity Reaction Status Date / Time No Known Allergies Allergy Verified 04/29/23 09:39 Review of Systems Review of Systems: CONSTITUTIONAL: Denies malaise, chills, sweats, or fever. Reports the T EYES: Denies visual changes, redness, or discharge. ENT: Reports rhinorrhea, congestion, scratchy throat CARDIOVASCULAR: Denies chest pain, palpitations, or edema. RESPIRATORY: Reports cough. Denies dyspnea. GASTROINTESTINAL: Denies abdominal pain, nausea, vomiting, diarrhea SKIN: Denies rash or itching. MUSCULOSKELETAL: Denies myalgia. NEUROLOGIC: Reports headache. All systems reviewed & are unremarkable except as noted in HPI and below PMFSH Past Medical History Medical History Bloating Constipation Diabetes Esophagitis GERD (gastroesophageal reflux disease) Hypercholesteremia Hypertension Nonerosive esophageal reflux disease Seasonal allergies Sickle cell trait Upper abdominal pain Surgical History Surgical History No significant past surgical history Family History Family History Mother Hypertension Diabetes mellitus Father Acute myocardial infarction Social History Social History Tobacco type: cigarettes Second hand tobacco smoke exposure: No Smoking end date: 07/22/15 Alcohol intake: current Substance use: never Living arrangements: with family Occupation/Education: occupation Gender identity (if verbalized by the patient): Female Sexual Orientation (if Verbalized by the Patient): Straight or Heterosexual Comments At time of signature, agree with nursing past medical, surgical, social and family history. There is no relevant family history pertinent to the presenting complaint Exam Narrative: GENERAL: Well-appearing, well-nourished, and in no acute distress. HEAD: Normocephalic EYES: PERRLA, conjunctivae clear ENT: Nares clear, turbinates edematous and erythematous, clear discharge. Mucous membranes moist. TM pearly barraza with dull light reflex bilaterally; no tragal tenderness. Oropharynx not erythematous without lesions. Tonsils not enlarged and without exudate, no drooling, no hoarseness, no trismus, uvula midline. NECK: Supple. No lymphadenopathy CHEST: Clear to auscultation, breath sounds equal. No wheezing, rhonchi, rales, or stridor. No respiratory distress, speaks in full sentences. HEART: Regular rate and rhythm. No murmur heard. SKIN: Warm, dry, no rash. NEURO: Alert and oriented x3. PSYCH: Normal mood and affect Course Course Emergency Course: Patient is aware of diagnosis, u
[2023-04-29 09:43] VITALS: BP 117/85; PULSE 88; RESP 16; TEMP 36.8; O2SAT 100
== END 2023-04-29 10:25 | disposition home or self-care (01) ==
PROVIDERS: Emergency Provider Nurse Practitioner; PCP Family Medicine
DX: J06.9 Acute upper respiratory infection, unspecified (principal); N89.8 Other specified noninflammatory disorders of vagina; Z20.822 Contact with and (suspected) exposure to COVID-19; Z87.891 Personal history of nicotine dependence; E11.9 Type 2 diabetes mellitus without complications; K21.9 Gastro-esophageal reflux disease without esophagitis; E78.00 Pure hypercholesterolemia, unspecified; I10 Essential (primary) hypertension; D57.3 Sickle-cell trait
CPT/HCPCS: 87426; 87804; 99213; C9803; G0463

== ENCOUNTER 2023-06-29 09:27 | Emergency (ER) | payer OTHER, SELFPAY ==
--- NOTE | 2023-06-29 09:30 | ED.URI ---
HPI - URI/Sore Throat General Chief Complaint: Upper Respiratory Infection Stated Complaint: Headache/Sore Throat Time Seen by Provider: 06/29/23 09:29 Source: patient Mode of arrival: ambulatory Limitations: no limitations History of Present Illness HPI Narrative: Laly is a 47-year-old female patient presenting to the clinic today with complaints of headache and sore throat x1-2 days. She reports no fevers but has had some body aches. MD elicited complaint: sore throat and other (Headache) Related Data Home Medications Medication Instructions Recorded Confirmed amlodipine 5 mg tablet 5 mg PO DAILY 07/17/19 06/29/23 atorvastatin 20 mg tablet 20 mg PO DAILY 06/23/20 06/29/23 albuterol sulfate 90 mcg/actuation 2 inh inhalation DIRECTED 08/07/20 06/29/23 aerosol inhaler metformin 500 mg tablet 500 mg PO DIRECTED 03/10/23 06/29/23 ergocalciferol (vitamin D2) 1,250 1,250 mcg PO DIRECTED 04/29/23 06/29/23 mcg (50,000 unit) capsule Allergies Allergy/AdvReac Type Severity Reaction Status Date / Time No Known Allergies Allergy Verified 06/29/23 09:35 Review of Systems Review of Systems: Pertinent positives per HPI. Patient denies any fever, chills, rash, visual changes, dizziness, cough, shortness of breath, chest pain, palpitations, nausea, vomiting, diarrhea, constipation, abdominal pain, or any urinary issues. [facility] Past Medical History Medical History Bloating Constipation Diabetes Esophagitis GERD (gastroesophageal reflux disease) Hypercholesteremia Hypertension Nonerosive esophageal reflux disease Seasonal allergies Sickle cell trait Upper abdominal pain Surgical History Surgical History No significant past surgical history Family History Family History Mother Hypertension Diabetes mellitus Father Acute myocardial infarction Social History Social History Tobacco type: cigarettes Second hand tobacco smoke exposure: No Smoking end date: 07/22/15 Alcohol intake: current Substance use: never Living arrangements: with family Occupation/Education: occupation Gender identity (if verbalized by the patient): Female Sexual Orientation (if Verbalized by the Patient): Straight or Heterosexual Comments At the time of my signature, I reviewed and agree with the nursing past medical, surgical, social, and family history. There is no relevant family history pertinent to the patient complaint. Exam Narrative: General: Well-developed, well nourished, in no apparent distress Head: Normocephalic, atraumatic Eyes: Pupils equally round and reactive to light bilaterally, EOM intact, sclera and conjunctive clear, no discharge, lids normal Ears: TMs intact and clear, ear canals clear, no drainage, grossly hearing normal. Nose: Nares patent, no discharge, no inflammation, no sinus tenderness. Mouth: Oral pharynx without lesions or masses, good dentition, MMM. Neck: Supple, trachea midline, no enlargement of anterior or posterior cervical nodes, no thyroid masses or goiter palpable. Cardio: Regular rate and rhythm, s1 and s2 normal, no murmur appreciated. Resp: Clear to auscultation bilaterally, no rhonchi, rales, wheezing or rubs Course Course Emergency Course: Portions of this record may have been created with voice recognition software. Level of Care: Express Care Visit Vital Signs Vital signs: Vital signs reviewed MDM - URI/Sore Throat MDM Narrative Medical decision making narrative: At the time of visit patient is resting comfortably on the exam table. Patient appears to be nontoxic. Strep, flu, and COVID testing was performed. COVID and influenza testing was negative. Strep test was positive. Prescription for
[2023-06-29 09:39] VITALS: BP 118/81; PULSE 93; RESP 14; TEMP 36.8; O2SAT 100
== END 2023-06-29 10:00 | disposition home or self-care (01) ==
PROVIDERS: Emergency Provider Nurse Practitioner Family; PCP Family Medicine
DX: J02.0 Streptococcal pharyngitis (principal); Z20.822 Contact with and (suspected) exposure to COVID-19; Z87.891 Personal history of nicotine dependence; E11.9 Type 2 diabetes mellitus without complications; Z79.84 Long term (current) use of oral hypoglycemic drugs; E78.00 Pure hypercholesterolemia, unspecified; I10 Essential (primary) hypertension; D57.3 Sickle-cell trait; K21.00 Gastro-esophageal reflux disease with esophagitis, without bleeding
CPT/HCPCS: 87426; 87804; 87880; 99213; C9803; G0463

== ENCOUNTER 2023-10-04 16:52 | Emergency (ER) | payer OTHER, SELFPAY ==
--- NOTE | 2023-10-04 16:59 | ED.FEMALEGU ---
HPI - Female Genitourinary General Chief complaint: Urogenital-Female Stated complaint: Vaginal Problems Time Seen by Provider: 10/04/23 16:53 Source: patient Mode of arrival: ambulatory Limitations: no limitations History of Present Illness HPI Narrative: Laly is a 48-year-old female patient presenting to the clinic today with complaints of a sore on her vagina. She does have a history of herpes and thinks she is having an outbreak. He denies any other concerns at this time. States she cannot get into her doctor until next week. Related Data Home Medications Medication Instructions Recorded Confirmed amlodipine 5 mg tablet 5 mg PO DAILY 07/17/19 10/04/23 atorvastatin 20 mg tablet 20 mg PO DAILY 06/23/20 10/04/23 albuterol sulfate 90 mcg/actuation 2 inh inhalation DIRECTED 08/07/20 10/04/23 aerosol inhaler metformin 500 mg tablet 500 mg PO DIRECTED 03/10/23 10/04/23 ergocalciferol (vitamin D2) 1,250 1,250 mcg PO DIRECTED 04/29/23 10/04/23 mcg (50,000 unit) capsule Allergies Allergy/AdvReac Type Severity Reaction Status Date / Time No Known Allergies Allergy Verified 10/04/23 17:00 [facility] Past Medical History Medical History Bloating Constipation Diabetes Esophagitis GERD (gastroesophageal reflux disease) Hypercholesteremia Hypertension Nonerosive esophageal reflux disease Seasonal allergies Sickle cell trait Upper abdominal pain Surgical History Surgical History No significant past surgical history Family History Family History Mother Hypertension Diabetes mellitus Father Acute myocardial infarction Social History Social History Tobacco type: cigarettes Second hand tobacco smoke exposure: No Smoking end date: 07/22/15 Alcohol intake: current Substance use: never Living arrangements: with family Occupation/Education: occupation Gender identity (if verbalized by the patient): Female Sexual Orientation (if Verbalized by the Patient): Straight or Heterosexual Comments At the time of my signature, I reviewed and agree with the nursing past medical, surgical, social, and family history. There is no relevant family history pertinent to the patient complaint. Exam Narrative: General: Well-developed, well nourished, in no apparent distress Head: Normocephalic, atraumatic. Cardio: Regular rate and rhythm, s1 and s2 normal, no murmur appreciated. Resp: Clear to auscultation bilaterally, no rhonchi, rales, wheezing or rubs. Abdomen: Soft, pliable, bowel sounds present in all quadrants, non-tender to palpation, no CVAT tenderness. : Pelvic exam performed with (Mariella BRYANT) at bedside. Verbal consent obtained from patient. Normal external female genitalia with lesions two small painful vesicular lesions to the right outer labia majora, no masses, Urinary meatus: patent without discharge, Vagina: No lesions, masses, white vaginal discharge Cervix: pink without mass, lesions, discharge, or tenderness. Adnexa: without palpable mass or tenderness. Course Course Emergency Course: Portions of this record may have been created with voice recognition software. Level of Care: Express Care Visit Vital Signs Vital signs: Vital signs reviewed MDM - Female Genitourinary MDM Narrative Medical decision making narrative: At the time of visit patient is resting comfortably on the exam table. Patient appears to be nontoxic. I suspect patient has an outbreak of genital herpes. Prescription for Valtrex was sent to the pharmacy. Supportive measures were discussed with the patient and they voiced understanding discharge instructions and agrees to treatment plan. Return precautions reviewed Differential Diagnosis Differential
[2023-10-04 17:07] VITALS: BP 123/83; PULSE 93; RESP 16; TEMP 37.5; O2SAT 100
== END 2023-10-04 17:25 | disposition home or self-care (01) ==
PROVIDERS: Emergency Provider Nurse Practitioner Family; PCP Family Medicine
DX: A60.04 Herpesviral vulvovaginitis (principal); Z87.891 Personal history of nicotine dependence; E11.9 Type 2 diabetes mellitus without complications; Z79.84 Long term (current) use of oral hypoglycemic drugs; K21.9 Gastro-esophageal reflux disease without esophagitis; E78.00 Pure hypercholesterolemia, unspecified; I10 Essential (primary) hypertension; D57.3 Sickle-cell trait
CPT/HCPCS: 99213; G0463

== ENCOUNTER 2023-11-22 17:59 | Emergency (ER) | payer OTHER, SELFPAY ==
--- NOTE | ~2023-11-22 | XR_ITS ---
EXAMINATION: [id number] DATE: 11/22/2023 18:28 INDICATION: Left knee pain. TECHNIQUE: 2 views of left knee were obtained. COMPARISON: None. FINDINGS: Bone alignment is normal. There is mild osteoarthritis of medial compartment. No knee joint effusion. IMPRESSION: 1. Mild left knee osteoarthritis. Reviewed, dictated and finalized at location E.
[2023-11-22 18:07] VITALS: BP 137/87; PULSE 94; RESP 16; TEMP 37.1; O2SAT 98
--- NOTE | 2023-11-22 18:21 | ED.EXTPRO ---
HPI - Extremity Problem General Chief complaint: Extremity Problem,Nontraumatic Stated complaint: left knee pain Time Seen by Provider: 11/22/23 18:10 Source: RN notes reviewed Mode of arrival: ambulatory Limitations: no limitations History of Present Illness HPI Narrative: Patient presents today complaining of left knee pain x1 week. Denies injury or trauma. Denies numbness or tingling. She currently rates her pain 5/10, which increases with weight-bearing. She has been taking Tylenol without relief. Related Data Home Medications Medication Instructions Recorded Confirmed amlodipine 5 mg tablet 5 mg PO DAILY 07/17/19 11/22/23 atorvastatin 20 mg tablet 20 mg PO DAILY 06/23/20 11/22/23 metformin 500 mg tablet 500 mg PO DIRECTED 03/10/23 11/22/23 ergocalciferol (vitamin D2) 1,250 1,250 mcg PO DIRECTED 04/29/23 11/22/23 mcg (50,000 unit) capsule Allergies Allergy/AdvReac Type Severity Reaction Status Date / Time No Known Allergies Allergy Verified 11/22/23 18:10 Review of Systems Review of Systems: CONSTITUTIONAL: Denies body aches, fever, chills, or sweats. EYES: Denies visual changes, redness, or discharge. ENT: Denies rhinorrhea, congestion, sore throat, or otalgia. CARDIOVASCULAR: Denies chest pain, palpitations, or edema. RESPIRATORY: Denies cough or dyspnea. GASTROINTESTINAL: Denies abdominal pain, nausea, vomiting, or diarrhea. GENITOURINARY: Denies dysuria or hematuria. SKIN: Denies rash, itching, or wounds. MUSCULOSKELETAL: Denies back pain, or myalgia.+ left knee pain NEUROLOGIC: Denies headache, numbness, tingling, or weakness. PSYCH: Denies depression or anxiety. [facility] Past Medical History Medical History Bloating Constipation Diabetes Esophagitis GERD (gastroesophageal reflux disease) Hypercholesteremia Hypertension Nonerosive esophageal reflux disease Seasonal allergies Sickle cell trait Upper abdominal pain Surgical History Surgical History No significant past surgical history Family History Family History Mother Hypertension Diabetes mellitus Father Acute myocardial infarction Social History Social History Tobacco type: cigarettes Second hand tobacco smoke exposure: No Smoking end date: 07/22/15 Alcohol intake: current Substance use: never Living arrangements: with family Occupation/Education: occupation Gender identity (if verbalized by the patient): Female Sexual Orientation (if Verbalized by the Patient): Straight or Heterosexual Comments At time of signature, I have reviewed and agree with nursing past medical, surgical, social and family history unless otherwise noted. Please see nursing chart for further information. There is no relevant family history pertinent to the presenting complaint Exam Narrative: GENERAL: Well-appearing, well-nourished, and in no acute distress. HEAD: Normocephalic, atraumatic. EYES: EOMI. No redness or drainage. Conjunctivae normal. ENT: Mucous membranes pink and moist. NECK: Normal AROM. CHEST: No respiratory distress. EXTREMITIES: Left knee: Mild tenderness to the medial joint line, otherwise nontender throughout the knee. No edema, erythema, ecchymosis. No pain with active range of motion. Distal sensation intact. Capillary refill normal. Pedal pulse normal. SKIN: Warm, dry, no rash. Capillary refill normal. Normal skin turgor. NEURO: No focal deficits. Alert and oriented x3. Gait steady. PSYCH: Normal affect. No signs of depression or anxiety. Course Course Level of Care: Express Care Visit Vital Signs Vital signs: Vital Signs Temperature 98.8 F 11/22/23 18:07 Pulse Rate 94 11/22/23 18:07 Respiratory Rate 16 11/21
== END 2023-11-22 18:50 | disposition home or self-care (01) ==
PROVIDERS: Emergency Provider Nurse Practitioner; PCP Family Medicine
DX: M17.12 Unilateral primary osteoarthritis, left knee (principal); Z87.891 Personal history of nicotine dependence; E11.9 Type 2 diabetes mellitus without complications; Z79.84 Long term (current) use of oral hypoglycemic drugs; K21.9 Gastro-esophageal reflux disease without esophagitis; E78.00 Pure hypercholesterolemia, unspecified; I10 Essential (primary) hypertension; D57.3 Sickle-cell trait
CPT/HCPCS: 73560; 99213; G0463

== ENCOUNTER 2023-12-20 18:19 | Emergency (ER) | payer OTHER, SELFPAY ==
--- NOTE | 2023-12-20 18:24 | ED.EAR ---
HPI - Ear Problem General Chief complaint: Ear Stated complaint: Ear pain-both, muscle pain front left shoulder Time Seen by Provider: 12/20/23 18:20 Source: patient Mode of arrival: ambulatory Limitations: no limitations History of Present Illness HPI Narrative: Patient is a 48-year-old female who presents with bilateral ear pain, headache and congestion for 3 days. Patient has not taken anything for symptoms. Patient also having acid reflux due to taking Motrin for arthritis that she was told to take earlier this month. MD Complaint: ear pain Related Data Home Medications Medication Instructions Recorded Confirmed amlodipine 5 mg tablet 5 mg PO DAILY 07/17/19 12/20/23 atorvastatin 20 mg tablet 20 mg PO DAILY 06/23/20 12/20/23 metformin 500 mg tablet 500 mg PO DIRECTED 03/10/23 12/20/23 ergocalciferol (vitamin D2) 1,250 1,250 mcg PO DIRECTED 04/29/23 12/20/23 mcg (50,000 unit) capsule Allergies Allergy/AdvReac Type Severity Reaction Status Date / Time No Known Allergies Allergy Verified 12/20/23 18:22 Review of Systems Review of Systems: All systems reviewed & are unremarkable except as noted in HPI and below Constitutional: Constitutional: Denies body ache(s), Denies chills, Denies fever(s), Reports headache(s) and Denies malaise Eyes: Eyes: Denies blurry vision, Denies eye discharge and Denies irritation ENT: Reports otalgia, Denies headache(s), Reports nasal congestion, Denies nasal discharge and Denies sore throat Cardiovascular: Cardiovascular: Denies chest pain, Denies edema, Denies palpitations and Denies dyspnea on exertion Respiratory: Respiratory: Denies cough and Denies dyspnea on exertion Gastrointestinal: Gastrointestinal: Denies abdominal pain, Reports heartburn, Denies diarrhea, Denies nausea and Denies vomiting Musculoskeletal: Musculoskeletal: Denies back pain, Denies arthralgias and Denies muscle weakness Integumentary/Breasts: Skin/Breast: Denies pruritus and Denies rash Neurologic: Reports headache(s) Psychiatric: Psychiatric: Reports no additional psychiatric complaints Endocrine: Endocrine: Denies palpitations PMFSH Past Medical History Medical History Bloating Constipation Diabetes Esophagitis GERD (gastroesophageal reflux disease) Hypercholesteremia Hypertension Nonerosive esophageal reflux disease Seasonal allergies Sickle cell trait Upper abdominal pain Surgical History Surgical History No significant past surgical history Family History Family History Mother Hypertension Diabetes mellitus Father Acute myocardial infarction Social History Social History Tobacco type: cigarettes Second hand tobacco smoke exposure: No Smoking end date: 07/22/15 Alcohol intake: current Substance use: never Living arrangements: with family Occupation/Education: occupation Gender identity (if verbalized by the patient): Female Sexual Orientation (if Verbalized by the Patient): Straight or Heterosexual Comments At time of signature, agree with nursing past medical, surgical, social and family history. There is no relevant family history pertinent to the presenting complaint? Exam Const: General: cooperative, healthy appearing, no acute distress and well nourished Nutritional Appearance: well nourished Orientation/consciousness: patient oriented x3 Limitations: no limitations HENMT: Head: normal to inspection, normocephalic and atraumatic Ears: hearing grossly normal bilaterally, EAC's normal, no periauricular adenopathy and TM abnormal wth effusion serous bilateral Face/Nose/Sinus: Normal external nose present, Normal nares present, Normal nasal mucous membranes and turbinates present, No nasal discharge present, no
[2023-12-20 18:26] VITALS: BP 133/85; PULSE 94; RESP 16; TEMP 37.1; O2SAT 99
== END 2023-12-20 19:00 | disposition home or self-care (01) ==
PROVIDERS: Emergency Provider Nurse Practitioner Family; PCP Family Medicine
DX: H65.03 Acute serous otitis media, bilateral (principal); K21.9 Gastro-esophageal reflux disease without esophagitis; Z87.891 Personal history of nicotine dependence; E11.9 Type 2 diabetes mellitus without complications; E78.00 Pure hypercholesterolemia, unspecified; I10 Essential (primary) hypertension; D57.3 Sickle-cell trait
CPT/HCPCS: 99213; G0463

== ENCOUNTER 2024-04-01 13:42 | Outpatient (CLI) | payer BC, SELFPAY ==
--- NOTE | ~2024-04-01 | US_ITS ---
EXAMINATION: US OB transvaginal DATE: 04/01/2024 14:10 INDICATION: Threatened TECHNIQUE: Real-time pelvic ultrasound utilizing a transvaginal probe was performed. The interpreting radiologist was not present for the study. COMPARISON: None. FINDINGS: The uterus measures 12.2 x 6.9 x 7.2 cm. Small collection of fluid at the uterine fundus measuring 1 .7 x 1.2 x 0.4 cm. No evident yolk sac or pole. The mean diameter of the fluid collection which is representing a gestational sac would correlate with an estimated gestational age of 5 weeks and 6 days. The right ovary was not visualized. The left ovary measures 2.9 x 1.8 x 1.7 cm. 9 mm anechoic left ov christiano cyst/follicle. There is no free fluid in the pelvis. IMPRESSION: 1. Small intrauterine fluid collection without evident yolk sac or pole to definitively confirm an intrauterine . Differential would include gestational sac in the setting of early or junior led and ectopic . Recommend follow-up with serial beta-hCG levels and repeat ultra sound as clinically indicated. Reviewed, dictated and finalized at location B. IMPRESSION: 1. Small intrauterine fluid collection without evident yolk sac or pole t o definitively confirm an intrauterine . Differential would include ge stational sac in the setting of early or failed and ectopic . Recommend follow-up with serial beta-hCG levels and repeat ultrasound as clin ically indicated.
== END 2024-04-01 13:43 | disposition home or self-care (01) ==
LOC: MICIMG 13:42
PROVIDERS: PCP Family Medicine; Visit Provider Obstetrics & Gynecology Gynecology
DX: Z87.59 Personal history of other complications of pregnancy, childbirth and the puerperium (principal)
CPT/HCPCS: 76817

== ENCOUNTER 2024-04-08 10:54 | Outpatient (CLI) | payer BC, SELFPAY ==
--- NOTE | ~2024-04-08 | US_ITS ---
EXAMINATION: US OB transvaginal DATE: 04/08/2024 11:23 INDICATION: Uncertain dates. . TECHNIQUE: Real-time transvaginal pelvic ultrasound was performed. COMPARISON: Ultrasound 04/01/2024 FINDINGS: The uterus measures 12.2 x 7.6 x 7.0 cm. There is an irregularly-shaped cystic mass in the endometria l complex with mean diameter of 15 mm with internal echoes. No definite yolk sac or pole is dano ntified. The ovaries are not visualized. There is no free fluid in the pelvis. IMPRESSION: 1. Irregular cystic mass in the endometrial complex that is indeterminate for a gestational sac. The differential diagnosis includes early , spontaneous , and ectopic . Serial beta hCGs are recommended. Reviewed, dictated and finalized at location A. IMPRESSION: 1. Irregular cystic mass in the endometrial complex that is indeterminate for a gestational sac. The differential diagnosis includes early , spontan eous , and ectopic . Serial beta hCGs are recommended.
== END 2024-04-08 10:55 | disposition home or self-care (01) ==
LOC: MICIMG 10:55
PROVIDERS: PCP Family Medicine; Visit Provider Obstetrics & Gynecology Gynecology
DX: O09.299 Supervision of pregnancy with other poor reproductive or obstetric history, unspecified trimester (principal); Z3A.00 Weeks of gestation of pregnancy not specified
CPT/HCPCS: 76817

== ENCOUNTER 2024-04-13 13:42 | Outpatient (CLI) | payer BC, SELFPAY ==
--- NOTE | ~2024-04-13 | US_ITS ---
EXAMINATION: US OB transvaginal DATE: 04/13/2024 14:33 INDICATION: Missed spontaneous . TECHNIQUE: Real-time transvaginal pelvic ultrasound was performed. COMPARISON: Ultrasound 04/08/2024 FINDINGS: The uterus measures 11.5 x 8.2 x 7.7 cm. There is an irregular cyst in the endometrial complex with m jacquie diameter of 1.3 cm with internal echoes. The right ovary measures 2.6 x 1.9 x 2.7 cm. The left ov ray measures 3.4 x 1.8 x 2.1 cm. There is no free fluid in the pelvis. IMPRESSION: 1. Irregular cyst in the endometrial complex that is indeterminate for gestational sac. The differen tial diagnosis includes early , spontaneous , and ectopic . Serial beta-hCG s are recommended. Reviewed, dictated and finalized at location A. IMPRESSION: 1. Irregular cyst in the endometrial complex that is indeterminate for gestati onal sac. The differential diagnosis includes early , spontaneous abor tion, and ectopic . Serial beta-hCGs are recommended.
== END 2024-04-13 13:43 | disposition home or self-care (01) ==
LOC: MICIMG 13:42
PROVIDERS: PCP Family Medicine; Visit Provider Obstetrics & Gynecology Gynecology
DX: O03.4 Incomplete spontaneous abortion without complication (principal); N85.8 Other specified noninflammatory disorders of uterus
CPT/HCPCS: 76817

== ENCOUNTER 2024-04-20 00:15 | Day surgery (SDC) | payer BC, SELFPAY ==
[2024-04-17 08:37] VITALS: BMI 30.3
--- NOTE | 2024-04-17 08:41 | PC.NURSE ---
Report to the Outpatient Waiting Room, entrance under the green pavilion located off [facility], at time _0900_ on date _[id number]_. Planned Procedure Time: _1100_.? Time changes happen often and if your time is changed the preop area will call you the afternoon before. - You and your visitor will be asked to self-screen and do not enter if you have any COVID symptoms. Please call surgeon if you need to reschedule. - A mask is optional within the hospital at this time. Patients may have clear liquids (water, carbonated beverages, clear teas, apple juice) until 3 hours prior to surgery with a maximum of 20 ounces. - No food from midnight until time of surgery and no smoking Take only the following medications with a SIP of water on the morning of surgery: ____Nifedipine DO NOT STOP ANY OF YOUR OTHER PRESCRIPTION MEDICATIONS PRIOR TO SURGERY EXCEPT THE FOLLOWING Medications to discontinue per physician ____Prenatal vitamin Date to take last dose Stop now Please no make-up, nail cymraes, hairspray, perfume, deodorant, or body powder the day of surgery.? No jewelry (including any body piercings) or valuables the day of surgery, leave them at home.? Please take a shower or bath the night before, or the morning of, surgery with an antibacterial soap.? Wear comfortable, loose fitting clothing.? - Jewelry must be removed prior to entering the operating room.? Rings and piercings that are not removed may be cut off. - The hospital will not accept responsibility for valuables.? - Please leave all valuables, including medications, at home the day of surgery. If you are going home after surgery, a licensed experienced truck driver must drive you home.? - NO public transportation without another adult if you receive anesthesia. - We recommend that an adult stay with you for 24 hours following discharge. - We also recommend that you do not drive, make important decision, drink alcoholic beverages, or take any drugs that were not prescribed by your health care provider for at least 24 hours after your discharge time. Follow any additional instructions given to you from your surgeon. Telephone instructions given to __Tammy__and asked if any additional questions and then verbalized understanding. Patient advised to call surgeon office or pre surgery nurse liaison [phone] if any additional questions.
--- NOTE | 2024-04-20 07:26 | WPDHPUPDATE1 ---
History and Physical Update Update Date/Time: 04/20/24 07:26 History and Physical has been reviewed, including an updated exam of the patient. There are NO changes in the patient's condition. Risks, benefits, and alternatives have been discussed and questions answered. Patient agrees to proceed with procedure.
--- NOTE | 2024-04-20 07:26 | PM.HPGS ---
History of Present Illness History of Present Illness Consent: Risks, benefits, and alternatives have been discussed and questions answered. Patient agrees to proceed with procedure. Chief complaint: missed ab Narrative: Laly Luque is a 48 year old female with a missed . Beta HCGs are rising and on last check were 44483 micro IU per mL with ultrasound same day showing no pole with an irregular sac. It was recommended to undergo D&C. Risks of infection, bleeding, perforation, and possible pathology are reviewed. Patient voices understanding and agrees to proceed. Review of Systems Review of Systems: not repeated day of surgery; patient states no changes in status PMFSH Past Medical History Medical History (Updated 04/20/24 @ 07:31 by Regi Winter MD) Constipation Diabetes Esophagitis GERD (gastroesophageal reflux disease) History of miscarriage x4 Hypercholesteremia Hypertension (normal spontaneous vaginal delivery) x8 Surgical History Surgical History (Updated 04/20/24 @ 07:30 by Regi Winter MD) History of D&C Family History Family History Mother Hypertension Diabetes mellitus Father Acute myocardial infarction Social History Social History Smoking packs per day: 1 Smoking cigarettes per day: 20.0 Years smoked: 20 Smoking pack-years: 20.00 Smoking status: Former smoker Tobacco type: cigarettes Second hand tobacco smoke exposure: No Smoking end date: 04/17/14 Alcohol intake: current Substance use: never Living arrangements: with family Occupation/Education: occupation Gender identity (if verbalized by the patient): Female Sexual Orientation (if Verbalized by the Patient): Straight or Heterosexual Spiritual care concerns: No Meds Home Medications and Allergies Home Medications Medication Instructions Recorded Confirmed Type amlodipine 5 mg tablet 5 mg PO DAILY 07/17/19 04/17/24 History atorvastatin 20 mg tablet 20 mg PO DAILY 06/23/20 04/17/24 History ergocalciferol (vitamin D2) 1,250 1,250 mcg PO DIRECTED 04/29/23 04/17/24 History mcg (50,000 unit) capsule fluticasone propionate 50 1 spray intranasal DAILY #16 grams 12/20/23 04/17/24 Rx mcg/actuation nasal spray,suspension (Flonase Allergy Relief) glimepiride 2 mg tablet 2 mg PO DAILY 04/17/24 04/17/24 History loratadine 10 mg tablet 10 mg PO DAILY PRN Allergy Symptoms 04/17/24 04/17/24 History nifedipine 30 mg tablet,extended 30 mg PO DAILY 04/17/24 04/17/24 History release 24 hr omeprazole 10 mg capsule,delayed 10 mg PO DAILY PRN Acid Reflux 04/17/24 04/17/24 History release Allergies Allergy/AdvReac Type Severity Reaction Status Date / Time No Known Allergies Allergy Verified 04/17/24 08:34 Exam Const: General: healthy appearing and alert Orientation/consciousness: patient oriented x3 Resp: Effort & Inspection: normal respiratory effort : External Female Exam: normal external appearance Speculum Exam - Vagina: normal appearance of the vagina and normal vaginal discharge Speculum Exam - Cervix: normal appearance of the cervix Bimanual exam- vagina & uterus: uterine size normal and consistency normal Bimanual Exam- Adnexa, other: normal adnexae and No adnexal tenderness Neuro: General: patient oriented x3 Assessment and Plan Assessment and plan (1) Missed : Code(s): O02.1 - Missed Status: Acute Assessment and Plan: plan to proceed with D&C
[2024-04-20 09:50] VITALS: BP 132/80; PULSE 109; RESP 18; TEMP 36.8; O2SAT 100; BMI 29.7
[2024-04-20] MEDS: LACTATED RINGERS 1,000 ML 30 ML IV CONT (09:50)
[2024-04-20 09:56] LABS: Anion Gap 13 mmol/L (4-12); Blood Urea Nitrogen 5 mg/dL (7-17); Calcium 9.1 mg/dL (8.4-10.2); Carbon Dioxide 18 mmol/L (22-30); Chloride 106 mmol/L (98-107); Estimated CRCL calculation 102 ml/min; Estimated Glomerular Filt Rate > 60; Glucose 110 mg/dL (65-110); Potassium 3.6 mmol/L (3.4-5.0); Sodium 137 mmol/L (137-145)
[2024-04-20] MEDS: ACETAMINOPHEN 500 MG TABLET 1000 MG PO (10:00)
--- NOTE | 2024-04-20 10:51 | WPDANESEPPF ---
Anes - Initial Pre Proc Eval Procedure: Operation Date: 04/20/24 11:00 Proposed Procedures p Suction Dilation and Curettage - Regi Winter MD Date/Time: 04/20/24 10:51 Surgeon: Regi Winter MD Pre Op Diagnosis: missed ab Patient Data Age: 48 Gender: F Height: 1.52 m Weight: 69.1 kg Last Vital Signs Temp 98.2 F 04/20/24 09:50 Pulse 109 H 04/20/24 09:50 Resp 18 04/20/24 09:50 BP 132/80 04/20/24 09:50 Pulse Ox 100 04/20/24 09:50 Allergies Allergy/AdvReac Type Severity Reaction Status Date / Time No Known Allergies Allergy Verified 04/17/24 08:34 Home Medications Medication Instructions Recorded Confirmed Type amlodipine 5 mg tablet 5 mg PO DAILY 07/17/19 04/17/24 History atorvastatin 20 mg tablet 20 mg PO DAILY 06/23/20 04/17/24 History ergocalciferol (vitamin D2) 1,250 1,250 mcg PO DIRECTED 04/29/23 04/17/24 History mcg (50,000 unit) capsule fluticasone propionate 50 1 spray intranasal DAILY #16 grams 12/20/23 04/17/24 Rx mcg/actuation nasal spray,suspension (Flonase Allergy Relief) glimepiride 2 mg tablet 2 mg PO DAILY 04/17/24 04/20/24 History loratadine 10 mg tablet 10 mg PO DAILY PRN Allergy Symptoms 04/17/24 04/17/24 History nifedipine 30 mg tablet,extended 30 mg PO DAILY 04/17/24 04/17/24 History release 24 hr omeprazole 10 mg capsule,delayed 10 mg PO DAILY PRN Acid Reflux 04/17/24 04/17/24 History release Laboratory Tests 04/20/24 09:25 Sodium 137 mmol/L (137-145) Potassium 3.6 mmol/L (3.4-5.0) Chloride 106 mmol/L (98-107) Carbon Dioxide 18 L mmol/L (22-30) Anion Gap 13 H mmol/L (4-12) BUN 5 L mg/dL (7-17) Creatinine 0.50 L mg/dL (0.7-1.0) Estim Creat Clear Calc 102 ml/min Estimated GFR > 60 (59 - ) Glucose 110 mg/dL (65-110) Calcium 9.1 mg/dL (8.4-10.2) Blood Type O Positive Antibody Screen Negative Screen Pending Baby's Blood Type Pending Baby's EMMIE Pending Doses of RhIg Required Pending Patient hx anesthesia problems: none Family hx anesthesia problems: none Results Review: All pre-operative results and documents have been reviewed as part of the pre-operative evaluation. [facility] Past Medical History Medical History (Updated 04/20/24 @ 07:31 by Regi Winter MD) Constipation Diabetes Esophagitis GERD (gastroesophageal reflux disease) History of miscarriage x4 Hypercholesteremia Hypertension (normal spontaneous vaginal delivery) x8 Surgical History Surgical History (Updated 04/20/24 @ 07:30 by Regi Winter MD) History of D&C Family History Family History Mother Hypertension Diabetes mellitus Father Acute myocardial infarction Social History Social History Smoking packs per day: 1 Smoking cigarettes per day: 20.0 Years smoked: 20 Smoking pack-years: 20.00 Smoking status: Former smoker Tobacco type: cigarettes Second hand tobacco smoke exposure: No Smoking end date: 04/17/14 Alcohol intake: current Substance use: never Living arrangements: with family Occupation/Education: occupation Gender identity (if verbalized by the patient): Female Sexual Orientation (if Verbalized by the Patient): Straight or Heterosexual Spiritual care concerns: No Anes - Eval Final PreProcedure Day of Procedure 04/20/24 10:51 Patient weight: normal Heart: regular rate and rhythm Lungs: clear to auscultation Airway: Mallampati scale class III Neurological: alert and oriented Last oral intake: >/= 8 hours ASA classification: III Emergent: no Anesthetic plan: proceed Anesthesia type and monitoring: general GIVS and standard monitoring Results Review: All pre-operative results and documents have been reviewed as part of
--- NOTE | 2024-04-20 12:04 | P.OP_ITS ---
Procedure Note - Detailed Date of Procedure 04/20/24 Pre-op Diagnosis missed ab Post-op Diagnosis Same Procedure Performed suction D&C Surgeon Regi Winter MD Anesthesia MAC Findings uterus sounds to 10cm moderate products of conception Description of Procedure The patient was taken to the operating room and placed under anesthesia in the dorsal lithotomy position. She was prepped and draped in the usual sterile fashion. [place] speculum was placed in the vagina and the cervix grasped on the anterior lip with a tenaculum. The uterus is sounded to 10cm. The cervix was serially dilated with Hegar to an 8. The 8mm curved suction curette was u sed to evacuate the uterus until no further products were noted in the tubing. The sharp curette was then used to curette the endometrium until a good uterine cry was noted in all areas. One additional pass is taken with the suction curette and no additional products were noted. All instruments are removed. Patient was awakened from anesthesia and taken to recovery in stable condition. Sponge, needle, and instrument counts are correct per the OR staff. Estimated Blood Loss 50 Drains No Packing No Pathology Yes ( Products of conception) Complications No immediate complications Condition Stable Disposition PACU
[2024-04-20 12:07] VITALS: BP 114/75; PULSE 105; RESP 16; O2SAT 100
[2024-04-20] MEDS: medroxyPROGESTERone ACETATE IM 150 MG/ML SYR IM (12:14)
[2024-04-20 12:30] VITALS: BP 120/70; PULSE 98; RESP 16
[2024-04-20 12:31] LABS: Glucose Point of Care 98 mg/dl (65-105)
[2024-04-20 12:50] VITALS: BP 112/67; PULSE 94; RESP 20
== END 2024-04-20 13:00 | disposition home or self-care (01) ==
PROVIDERS: Anesthesiology; PCP Family Medicine; Visit Provider Obstetrics & Gynecology Gynecology
PROC: (CPT 59820; principal; 2024-04-20 11:00)
DX: O01.0 Classical hydatidiform mole (principal); I10 Essential (primary) hypertension; E11.9 Type 2 diabetes mellitus without complications; K21.9 Gastro-esophageal reflux disease without esophagitis; E78.00 Pure hypercholesterolemia, unspecified; Z79.84 Long term (current) use of oral hypoglycemic drugs; Z98.890 Other specified postprocedural states; Z87.891 Personal history of nicotine dependence; Z82.49 Family history of ischemic heart disease and other diseases of the circulatory system
CPT/HCPCS: 59820; 36415; 80048; 82948; 85461; 86850; 86900; 86901; 88305; 88342; A9270; J1050; J2250; J2405; J2704; J3010; J7120

== ENCOUNTER 2024-05-15 19:23 | Emergency (ER) | payer BC, SELFPAY ==
[2024-05-15 19:29] VITALS: BP 159/86; PULSE 94; RESP 19; TEMP 37.2; O2SAT 100
--- NOTE | 2024-05-15 19:35 | ED.URI ---
HPI - URI/Sore Throat General Chief Complaint: Upper Respiratory Infection Stated Complaint: Sinus Time Seen by Provider: 05/15/24 19:49 Source: patient, RN notes reviewed and old records reviewed Mode of arrival: ambulatory Limitations: no limitations History of Present Illness HPI Narrative: Patient presents with complaints of 2 weeks of sinus pain and pressure, now has left ear pain. She denies any injury or trauma. She denies any fever, chills, sweats. She does endorse headache, purulent nasal drainage. Reports that she has been more tired the last several days than normal. She has been taking certerizine for her symptoms with minimal relief. She voices no other concerns or complaints today Related Data Home Medications Medication Instructions Recorded Confirmed amlodipine 5 mg tablet 5 mg PO DAILY 07/17/19 05/15/24 atorvastatin 20 mg tablet 20 mg PO DAILY 06/23/20 05/15/24 ergocalciferol (vitamin D2) 1,250 1,250 mcg PO DIRECTED 04/29/23 05/15/24 mcg (50,000 unit) capsule glimepiride 2 mg tablet 2 mg PO DAILY 04/17/24 05/15/24 nifedipine 30 mg tablet,extended 30 mg PO DAILY 04/17/24 05/15/24 release 24 hr cetirizine 10 mg tablet (Zyrtec) 10 mg PO DAILY 05/15/24 05/15/24 pantoprazole 20 mg tablet,delayed 20 mg PO DAILY 05/15/24 05/15/24 release Allergies Allergy/AdvReac Type Severity Reaction Status Date / Time ANTIBIOTIC AdvReac Other Uncoded 05/15/24 19:40 Review of Systems Review of Systems: All systems reviewed & are unremarkable except as noted in HPI and below Constitutional: Constitutional: Reports no additional constitutional complaints ENT: Reports system reviewed and no additional complaints, except as documented, Reports otalgia, Reports facial pain, Reports nasal congestion, Reports nasal discharge, Reports sinus pain and Reports sinus pressure Cardiovascular: Cardiovascular: Reports no additional cardiovascular complaints Respiratory: Respiratory: Reports no additional respiratory complaints Gastrointestinal: Gastrointestinal: Reports no additional gastrointestinal complaints Neurologic: Reports headache(s) [facility] Past Medical History Medical History (Updated 05/16/24 @ 08:15 by Sofia Olson, KITA) Constipation Diabetes Esophagitis GERD (gastroesophageal reflux disease) History of miscarriage x4 Hypercholesteremia Hypertension (normal spontaneous vaginal delivery) x8 Surgical History Surgical History History of D&C Family History Family History Mother Hypertension Diabetes mellitus Father Acute myocardial infarction Social History Social History Smoking packs per day: 1 Smoking cigarettes per day: 20.0 Years smoked: 20 Smoking pack-years: 20.00 Smoking status: Former smoker Tobacco type: cigarettes Second hand tobacco smoke exposure: No Smoking end date: 04/17/14 Alcohol intake: current Substance use: never Living arrangements: with family Occupation/Education: occupation Gender identity (if verbalized by the patient): Female Sexual Orientation (if Verbalized by the Patient): Straight or Heterosexual Spiritual care concerns: No Comments At the time of my signature, I reviewed and agree with the nursing past medical, surgical, social, and family history. There is no relevant family history pertinent to the patient complaint. Exam Const: General: cooperative, no acute distress, alert and awake Orientation/consciousness: oriented to person, oriented to place and oriented to time HENMT: Head: normal to inspection Ears: TM abnormal dull bilateral and erythematous on the left Face and sinus: sinus tenderness maxillary Mouth: Yes moist mucous membranes Throat: posterior oropharynx abnormal erythema and postnasal drainage Resp: Effort & Inspection: normal respiratory effort and able to speak in complete sentences Auscultation: clear to auscultation bilaterally, no crackles, no rales, no rhonchi and no wheezes Cardio: Palpation: normal PMI Rate: regular rate Rhythm: regular rhythm Heart sounds: S1 normal heart sound present and S2 normal heart sound present Neuro: General: oriented to person, oriented to place and oriented to time Cranial nerves: Yes CN's II-XII intact bilaterally Psych: Appearance: grossly normal Thought process: Normal thought process present Insight: Good insight present (Psych) Judgement: Good judgement present (Psych) Course Course Level of Care: Express Care Visit Vital Signs Vital signs: Vital Signs Temperature 98.9 F 05/15/24 19:29 Pulse Rate 94 05/15/24 19:29 Respiratory Rate 19 05/15/24 19:29 Blood Pressure 159/86 H 05/15/24 19:29 Pulse Oximetry 100 05/15/24 19:29 Oxygen Delivery Room Air 05/15/24 19:29 Temperature 98.9 F 05/15/24 19:29 Pulse Rate 94 05/15/24 19:29 Respiratory Rate 19 05/15/24 19:29 Blood Pressure 159/86 H 05/15/24 19:29 Pulse Oximetry 100 05/15/24 19:29 Oxygen Delivery Room Air 05/15/24 19:29 Reviewed MDM - URI/Sore Throat MDM Narrative Medical decision making narrative: History and exam consistent with sinusitis. Patient reports frequent vaginal yeast infections with antibiotic use. Discharge home with antibiotics, Diflucan if needed. Patient nontoxic appearing and stable for discharge Discharge instructions reviewed with patient, as well as provided in writing per nursing staff. The instructions also include specific and strict return/GO TO THE ER as well as f/u information. All questions have been answered, and the patient deny any further questions with discharge and discharge plan. Some parts of this dictation were generated by voice recognition software and may contain typographical and/or grammatical inaccuracies. Differential Diagnosis Differential diagnosis: Likely upper respiratory infection, otitis media, viral infection and pharyngitis Medical Records Attestation: I reviewed the patient's medical records. Discharge Plan Discharge Clinical Impression: Sinusitis, Elevated blood pressure reading Patient Disposition: Home, Self-Care Condition: Stable Instructions: Antibiotic Form, Sinusitis (ED) Additional Instructions: Take all medications as prescribed, follow with primary care provider. Emergency department for new or worse symptoms Patient Language: Hebrew Prescriptions: New amoxicillin-pot clavulanate 875-125 mg tablet 1 tablet PO Q12H Qty: 14 0RF fluconazole [Diflucan] 200 mg tablet 200 mg PO DAILY PRN (Reason: Yeast infection) Qty: 2 0RF Rx Instructions: Take 1 tablet by mouth at onset of symptoms, may repeat in 48-72 hours if symptoms have not resolved No Action atorvastatin 20 mg tablet 20 mg PO DAILY fluticasone propionate [Flonase Allergy Relief] 50 mcg/actuation spray,suspension 1 spray intranasal DAILY Qty: 16 0RF Rx Instructions: administer into each nostril amlodipine 5 mg tablet 5 mg PO DAILY ergocalciferol (vitamin D2) 1,250 mcg (50,000 unit) capsule 1,250 mcg PO DIRECTED pantoprazole 20 mg tablet,delayed release (DR/EC) 20 mg PO DAILY cetirizine [Zyrtec] 10 mg Tablet 10 mg PO DAILY nifedipine 30 mg tablet extended release 24hr 30 mg PO DAILY glimepiride 2 mg tablet 2 mg PO DAILY Patient Comments: patient taken off of med by provider, will restart soon Follow-up/Referrals: Mike Richmond MD [Primary Care Provider] - 2 Weeks Time of Disposition: 19:56
== END 2024-05-15 20:10 | disposition home or self-care (01) ==
PROVIDERS: Emergency Provider Nurse Practitioner Family; PCP Family Medicine
DX: J32.9 Chronic sinusitis, unspecified (principal); I10 Essential (primary) hypertension; E11.9 Type 2 diabetes mellitus without complications; Z79.84 Long term (current) use of oral hypoglycemic drugs; E78.00 Pure hypercholesterolemia, unspecified; K21.9 Gastro-esophageal reflux disease without esophagitis
CPT/HCPCS: 99213; G0463

== ENCOUNTER 2024-06-12 14:54 | Outpatient (CLI) | payer BC, SELFPAY ==
--- NOTE | ~2024-06-12 | MM_ITS ---
EXAMINATION: MM screening viri BI w yamila HISTORY: Screening mammogram TECHNIQUE: Craniocaudal and mediolateral oblique 3-D tomosynthesis images were obtained and synthetic 2-D images were generated. CAD analysis was submitted and interpreted. COMPARISON: 02/06/2022 bilateral screening mammogram BREAST PARENCHYMAL COMPOSITION: There are scattered areas of fibroglandular density. FINDINGS: There is no evidence of suspicious mass, calcification, or architectural distortion to sugg est malignancy in either breast. There has been no suspicious interval change. IMPRESSION: 1. No mammographic evidence of malignancy. 2. Recommend routine screening mammography in one year. BI-RADS Category 1: Negative Reviewed, dictated and finalized at location A. [facility] INSPECTOR
== END 2024-06-12 14:55 | disposition home or self-care (01) ==
LOC: ANHIMG 14:56
PROVIDERS: PCP Family Medicine; Visit Provider Obstetrics & Gynecology Gynecology
DX: Z12.31 Encounter for screening mammogram for malignant neoplasm of breast (principal)
CPT/HCPCS: 77063; 77067

== ENCOUNTER 2024-08-26 18:22 | Emergency (ER) | payer OTHER, SELFPAY ==
--- NOTE | 2024-08-26 18:24 | ED_ITS ---
HPI - URI/Sore Throat General Chief Complaint: Upper Respiratory Infection Stated Complaint: Cough/Sinus Time Seen by Provider: 08/26/24 19:20 Source: patient and RN notes reviewed Mode of arrival: ambulatory Limitations: no limitations History of Present Illness HPI Narrative: 49-year-old female presents concern for chest congestion, cough, body aches, sinus pressure, headache, ear pain. Reports symptoms started yesterday and worse today. She not yet taken any [id number] medications for her symptoms. Reports exposure COVID 3 weeks ago MD elicited complaint: cough and sore throat Related Data Home Medications ?Medication ?Instructions ?Recorded ?Confirmed ?Last Taken ?Type amlodipine 5 mg tablet 5 mg PO DAILY 07/17/19 05/15/24 04/19/24 History atorvastatin 20 mg tablet 20 mg PO DAILY 06/23/20 05/15/24 04/19/24 History ergocalciferol (vitamin D2) 1,250 1,250 mcg PO DIRECTED 04/29/23 05/15/24 04/16/24 History mcg (50,000 unit) capsule glimepiride 2 mg tablet 2 mg PO DAILY 04/17/24 05/15/24 1 Month Ago History ~03/20/24 nifedipine 30 mg tablet,extended 30 mg PO DAILY 04/17/24 05/15/24 04/19/24 History release 24 hr cetirizine 10 mg tablet (Zyrtec) 10 mg PO DAILY 05/15/24 05/15/24 Unknown History pantoprazole 20 mg tablet,delayed 20 mg PO DAILY 05/15/24 05/15/24 Unknown History release Allergies Allergy/AdvReac Type Severity Reaction Status Date / Time ANTIBIOTIC AdvReac Other Uncoded 08/26/24 18:43 Review of Systems Review of Systems: CONSTITUTIONAL: Reports malaise, fever. EYES: Denies visual changes, redness, or discharge. ENT: Reports rhinorrhea, congestion, otalgia CARDIOVASCULAR: Denies chest pain, palpitations, or edema. RESPIRATORY: Reports cough. Denies dyspnea. GASTROINTESTINAL: Denies abdominal pain, nausea, vomiting, diarrhea SKIN: Denies rash or itching. MUSCULOSKELETAL: Reports myalgia. NEUROLOGIC: Reports headache. All systems reviewed & are unremarkable except as noted in HPI and below PMFSH Past Medical History Medical History (Updated 08/26/24 @ 19:29 by Akila Chapman NP) History of miscarriage x4 (normal spontaneous vaginal delivery) x8 Esophagitis GERD (gastroesophageal reflux disease) Constipation Hypercholesteremia Diabetes Hypertension Surgical History Surgical History History of D&C Family History Family History Mother Hypertension Diabetes mellitus Father Acute myocardial infarction Social History Social History Smoking packs per day: 1 Smoking cigarettes per day: 20.0 Years smoked: 20 Smoking pack-years: 20.00 Smoking status: Former smoker Tobacco type: cigarettes Second hand tobacco smoke exposure: No Smoking end date: 04/17/14 Alcohol intake: current Substance use: never Living arrangements: with family Occupation/Education: occupation Gender identity (if verbalized by the patient): Female Sexual Orientation (if Verbalized by the Patient): Straight or Heterosexual Spiritual care concerns: No Comments At time of signature, agree with nursing past medical, surgical, social and family history. There is no relevant family history pertinent to the presenting complaint Exam Narrative: GENERAL: Nontoxic-appearing, well-nourished, and in no acute distress. HEAD: Normocephalic EYES: PERRLA, conjunctivae clear ENT: Nares clear. Mucous membranes moist. TM pearly barraza with dull light reflex bilaterally; no tragal tenderness. Oropharynx not erythematous without lesions. Tonsils not enlarged and without exudate, no drooling, no hoarseness, no trismus, uvula midline. NECK: Supple. No lymphadenopathy CHEST: Clear to auscultation, breath sounds equal. No wheezing, rhonchi, rales, or stridor. No respiratory distress, speaks in full sentences. HEART: Regular rate and rhythm. No murmur heard. SKIN: Warm, dry, no rash. NEURO: Alert and oriented x3. PSYCH: Normal mood and affect Course Course Emergency Course: Patient is aware of diagnosis, understands and agrees to treatment plan. Anticipatory guidance given. Patient agrees to follow-up as directed and is aware of reasons to seek care at the emergency department. Portions of this record may have been created with voice recognition software Level of Care: Express Care Visit Vital Signs Vital signs: Vital Signs Temperature 100.5 F H 08/26/24 18:35 Pulse Rate 123 H 08/26/24 18:35 Respiratory Rate 16 08/26/24 18:35 Blood Pressure 156/85 H 08/26/24 18:35 Pulse Oximetry 96 08/26/24 18:35 Oxygen Delivery Room Air 08/26/24 18:35 Temperature 100.5 F H 08/26/24 18:35 Pulse Rate 123 H 08/26/24 18:35 Respiratory Rate 16 08/26/24 18:35 Blood Pressure 156/85 H 08/26/24 18:35 Pulse Oximetry 96 08/26/24 18:35 Oxygen Delivery Room Air 08/26/24 18:35 Reviewed. MDM - URI/Sore Throat MDM Narrative Medical decision making narrative: Differential diagnosis considered: Abrams virus, strep pharyngitis, allergic rhinitis, upper respiratory tract infection, sinusitis, rhinosinusitis, nasopharyngitis. viral pharyngitis, otitis media, otitis externa, pneumonia, bronchitis, viral cough syndrome, viral syndrome, and influenza. Exam findings show no acute concerns or changes; patient is non-toxic appearing and is in no distress. Patient is appropriate for outpatient treatment and follow-up. Lab Data Attestation: I reviewed the patient's lab results. Critical Care Time Critical Care Time Critical Care Time: No Discharge Plan Discharge Clinical Impression: Influenza-like illness Patient Disposition: Home, Self-Care Condition: Stable Instructions: Viral Syndrome (ED) Additional Instructions: -Take strict precautions to prevent the spread of your virus. Be diligent about covering your cough (even when you are alone) and washing your hands frequently. -You may contagious until you have been symptom and/or fever free for 24 hours without fever reducing medicine -Alternate Ibuprofen and Tylenol for pain and fever relief (per package directions) -Drink plenty of fluid - drink fluid with electrolytes such as Gatorade or other oral re-hydration solution. Avoid caffeine, which can make dehydration worse. -Get plenty of rest to help your body heal. -Use a cool mist humidifier for chest and nasal congestion. -Eat RAW honey or use cough drops to ease throat discomfort -Do not smoke or expose children to secondhand smoke -Wash your hands frequently. -Please follow-up with your primary care doctor in the next 1-2 days if your symptoms do not improve. -If you have any worsening of symptoms or any other concerns please go to the ED immediately. -Please take medications as prescribed and continue taking your home medications as usual. Patient Language: Hong Konger Prescriptions: New pseudoephedrine HCl [12 Hour Decongestant] 120 mg tablet extended release 120 mg PO Q12H PRN (Reason: nasal congestion) Qty: 12 0RF No Action atorvastatin 20 mg tablet 20 mg PO DAILY fluticasone propionate [Flonase Allergy Relief] 50 mcg/actuation spray,suspension 1 spray intranasal DAILY Qty: 16 0RF Rx Instructions: administer into each nostril amlodipine 5 mg tablet 5 mg PO DAILY ergocalciferol (vitamin D2) 1,250 mcg (50,000 unit) capsule 1,250 mcg PO DIRECTED pantoprazole 20 mg tablet,delayed release (DR/EC) 20 mg PO DAILY cetirizine [Zyrtec] 10 mg Tablet 10 mg PO DAILY nifedipine 30 mg tablet extended release 24hr 30 mg PO DAILY glimepiride 2 mg tablet 2 mg PO DAILY Patient Comments: patient taken off of med by provider, will restart soon Follow-up/Referrals: Mike Richmond MD [Primary Care Provider] - Stand Alone Forms: Work/School Release IP Time of Disposition: 19:30
[2024-08-26 18:35] VITALS: BP 156/85; PULSE 123; RESP 16; TEMP 38.1; O2SAT 96
[2024-08-26 19:25] VITALS: PULSE 123; RESP 16; O2SAT 96
[2024-08-26 19:31] LABS: EDCOVIDSCREEN Negative (Negative); EDINFLUASCREEN Negative (Negative); EDINFLUBSCREEN Negative (Negative)
== END 2024-08-26 19:40 | disposition home or self-care (01) ==
PROVIDERS: Emergency Provider Nurse Practitioner; PCP Family Medicine
DX: J11.1 Influenza due to unidentified influenza virus with other respiratory manifestations (principal); Z20.822 Contact with and (suspected) exposure to COVID-19; Z87.891 Personal history of nicotine dependence; E11.9 Type 2 diabetes mellitus without complications; Z79.84 Long term (current) use of oral hypoglycemic drugs; I10 Essential (primary) hypertension; E78.00 Pure hypercholesterolemia, unspecified; K21.9 Gastro-esophageal reflux disease without esophagitis; Z86.16 Personal history of COVID-19
CPT/HCPCS: 87426; 87804; 99213; G0463

== ENCOUNTER 2024-09-11 09:27 | Emergency (ER) | payer OTHER, SELFPAY ==
[2024-09-11 09:52] VITALS: BP 143/89; PULSE 98; RESP 16; TEMP 37; O2SAT 98
--- NOTE | 2024-09-11 10:20 | ED.GENADULT ---
HPI - General Adult General Chief complaint: Upper Respiratory Infection Stated complaint: cough, worse after flu History of Present Illness HPI narrative: Laly Luque Is a 49-year-old female presents today with having a cough for 3 weeks now. She states that she got over the flu a few weeks ago and has continued lingering cough. She states that she sometimes uses inhaler at home which she has done couple times with a little relief. Denies any recent fevers. Denies any shortness of breath, chest pain. Related Data Home Medications ?Medication ?Instructions ?Recorded ?Confirmed ?Last Taken ?Type amlodipine 5 mg tablet 5 mg PO DAILY 07/17/19 05/15/24 04/19/24 History atorvastatin 20 mg tablet 20 mg PO DAILY 06/23/20 05/15/24 04/19/24 History ergocalciferol (vitamin D2) 1,250 1,250 mcg PO DIRECTED 04/29/23 05/15/24 04/16/24 History mcg (50,000 unit) capsule glimepiride 2 mg tablet 2 mg PO DAILY 04/17/24 05/15/24 1 Month Ago History ~03/20/24 nifedipine 30 mg tablet,extended 30 mg PO DAILY 04/17/24 05/15/24 04/19/24 History release 24 hr cetirizine 10 mg tablet (Zyrtec) 10 mg PO DAILY 05/15/24 05/15/24 Unknown History pantoprazole 20 mg tablet,delayed 20 mg PO DAILY 05/15/24 05/15/24 Unknown History release Allergies Allergy/AdvReac Type Severity Reaction Status Date / Time ANTIBIOTIC AdvReac Other Uncoded 08/26/24 18:43 Review of Systems Review of Systems: All systems reviewed & are unremarkable except as noted in HPI and below PMFSH Past Medical History Medical History History of miscarriage x4 (normal spontaneous vaginal delivery) x8 Esophagitis GERD (gastroesophageal reflux disease) Constipation Hypercholesteremia Diabetes Hypertension Surgical History Surgical History History of D&C Family History Family History Mother Hypertension Diabetes mellitus Father Acute myocardial infarction Social History Social History Smoking packs per day: 1 Smoking cigarettes per day: 20.0 Years smoked: 20 Smoking pack-years: 20.00 Smoking status: Former smoker Tobacco type: cigarettes Second hand tobacco smoke exposure: No Smoking end date: 04/17/14 Alcohol intake: current Substance use: never Living arrangements: with family Occupation/Education: occupation Gender identity (if verbalized by the patient): Female Sexual Orientation (if Verbalized by the Patient): Straight or Heterosexual Spiritual care concerns: No Exam Narrative: GENERAL: Well-appearing, well-nourished, and in no acute distress. HEAD: Normocephalic, atraumatic. EYES: PERRLA and EOMI. ENT: Nares clear, no rhinorrhea or epistaxis. Mucous membranes moist. Oropharynx without tonsillar hypertrophy exudate or other lesions. Bilateral TMs pearly barraza nonbulging NECK: Supple. No adenopathy or masses. No carotid bruits or JVD CHEST: Clear to auscultation with diminished in the bases posteriorly No respiratory distress. No wheezes rales or rhonchi HEART: Regular rate and rhythm. No murmur heard. Normal peripheral pulses. ABDOMEN: Soft, nontender, nondistended, normal active bowel sounds. EXTREMITIES: Normal range of motion. No edema. SKIN: Warm, dry, no rash. NEURO: No focal deficits. Alert and oriented x3. PSYCH: Normal mood and affect. Course Course Level of Care: Express Care Visit Vital Signs Vital signs: Vital Signs Temperature 37.0 C 09/11/24 09:52 Pulse Rate 98 09/11/24 09:52 Respiratory Rate 16 09/11/24 09:52 Blood Pressure 143/89 H 09/11/24 09:52 Pulse Oximetry 98 09/11/24 09:52 Oxygen Delivery Room Air 09/11/24 09:52 Temperature 37.0 C 09/11/24 09:52 Pulse Rate 98 09/11/24 09:52 Respiratory Rate 16 09/11/24 09:52 Blood Pressure 143/89 H 09/11/24 09:52 Pulse Oximetry 98 09/11/24 09:52 Oxygen Delivery Room Air 09/11/24 09:52 Medical Decision Making MDM Narrative Medical decision making narrative: ED COURSE AND MEDICAL DECISION MAKING: This 49 year old patient presents with symptoms most suggestive of respiratory tract infection. Lungs are clear bilaterally with diminished bases + coughing during exam, without any respiratory distress or accessory muscle use. With length of time cough has been present and the diminished bases will treat for Bronchitis with azithromycin I discussed with pt that she listed antibiotics to her allergy list - she states not really allergic she just needs something for a yeast infection, she states fluconazole does not work and that she needs Terconazole intravaginally to treat. Will send this for her. Patient discharged home in stable condition with expectant management. Return precautions were provided. Procedures: Pulse oximetry interpretation - not hypoxic. Review of medical records. DISPOSITION: Discharged home in stable condition. IMPRESSION: Bronchitis Medical Records Medical records reviewed: Yes I reviewed the external patient's medical records. Vital Signs Vital Signs: Vital Signs Temperature 37.0 C 09/11/24 09:52 Pulse Rate 98 09/11/24 09:52 Respiratory Rate 16 09/11/24 09:52 Blood Pressure 143/89 H 09/11/24 09:52 Pulse Oximetry 98 09/11/24 09:52 Oxygen Delivery Room Air 09/11/24 09:52 Temperature 37.0 C 09/11/24 09:52 Pulse Rate 98 09/11/24 09:52 Respiratory Rate 16 09/11/24 09:52 Blood Pressure 143/89 H 09/11/24 09:52 Pulse Oximetry 98 09/11/24 09:52 Oxygen Delivery Room Air 09/11/24 09:52 Vitals reviewed by me Discharge Plan Discharge Clinical Impression: Bronchitis Patient Disposition: Home, Self-Care Condition: Stable Instructions: Antibiotic Form Additional Instructions: Start the Azithromycin as ordered Push hydration Follow up with PCP in 1 week If you develop shortness of breath, chest pain feeling worse then go to the ER> Patient Language: Maltese Prescriptions: New azithromycin 250 mg tablet See Rx Instructions .ROUTE .COMPLEX Qty: 6 0RF Rx Instructions: For 250 mg dose pack: take 500 mg today (day 1), then 250 mg for 4 days (days 2-5) terconazole 0.8 % cream 1 appful vaginal HS 3 Days Qty: 20 1RF No Action atorvastatin 20 mg tablet 20 mg PO DAILY fluticasone propionate [Flonase Allergy Relief] 50 mcg/actuation spray,suspension 1 spray intranasal DAILY Qty: 16 0RF Rx Instructions: administer into each nostril pseudoephedrine HCl [12 Hour Decongestant] 120 mg tablet extended release 120 mg PO Q12H PRN (Reason: nasal congestion) Qty: 12 0RF amlodipine 5 mg tablet 5 mg PO DAILY ergocalciferol (vitamin D2) 1,250 mcg (50,000 unit) capsule 1,250 mcg PO DIRECTED pantoprazole 20 mg tablet,delayed release (DR/EC) 20 mg PO DAILY cetirizine [Zyrtec] 10 mg Tablet 10 mg PO DAILY nifedipine 30 mg tablet extended release 24hr 30 mg PO DAILY glimepiride 2 mg tablet 2 mg PO DAILY Patient Comments: patient taken off of med by provider, will restart soon Follow-up/Referrals: Mike Richmond MD [Primary Care Provider] - 1 Week Stand Alone Forms: Work/School Release IP Time of Disposition: 10:30
== END 2024-09-11 10:35 | disposition home or self-care (01) ==
PROVIDERS: Emergency Provider Nurse Practitioner Family; PCP Family Medicine
DX: J40 Bronchitis, not specified as acute or chronic (principal); E11.9 Type 2 diabetes mellitus without complications; I10 Essential (primary) hypertension; Z87.891 Personal history of nicotine dependence
CPT/HCPCS: 99213; G0463

== ENCOUNTER 2025-01-27 16:41 | Emergency (ER) | payer OTHER, BC, MEDICAID, SELFPAY ==
[2025-01-27 16:52] VITALS: BP 130/82; PULSE 97; RESP 20; TEMP 37.1; O2SAT 100
--- NOTE | 2025-01-27 17:08 | ED.FEMALEGU ---
HPI - Female Genitourinary General Chief complaint: Urogenital-Female Stated complaint: Vaginal Problems Time Seen by Provider: 01/27/25 17:02 Source: patient and RN notes reviewed Mode of arrival: ambulatory Limitations: no limitations History of Present Illness HPI Narrative: Patient presents today with a one-week history of external genital itching and odor as well as white vaginal discharge. She has tried some external cream without relief. Denies concerns for sexually transmitted infections. Patient is diabetic and states her sugars are not as well controlled as she would like them to be. States she used to have a prescription for fluconazole with several refills, but they have since fallen off her profile at the pharmacy. Related Data Home Medications ?Medication ?Instructions ?Recorded ?Confirmed ?Last Taken ?Type ergocalciferol (vitamin D2) 1,250 1,250 mcg PO DIRECTED 04/29/23 10/23/24 04/16/24 History mcg (50,000 unit) capsule One Touch Delica Plus 30 Gauge 10/23/24 10/23/24 Unknown History Lancets One Touch Verio Flex Bg Monitor 10/23/24 10/23/24 Unknown History medroxyprogesterone 150 mg/mL 150 mg IM [id number] 10/23/24 10/23/24 Unknown History intramuscular suspension (Depo-Provera) valacyclovir 500 mg tablet 500 mg PO DAILY 10/23/24 10/23/24 Unknown History estradiol 10 mcg vaginal tablet mcg vaginal 01/27/25 Unknown History (Vagifem) medroxyprogesterone 150 mg/mL mg IM 01/27/25 Unknown History intramuscular syringe Allergies Allergy/AdvReac Type Severity Reaction Status Date / Time shellfish derived Allergy Severe Anaphylaxis Verified 01/27/25 16:43 glimepiride AdvReac Intermediate Other Verified 01/27/25 16:43 metformin AdvReac Intermediate Diarrhea Verified 01/27/25 16:43 ANTIBIOTIC AdvReac Other Uncoded 01/27/25 16:43 PMFSH Past Medical History Medical History History of miscarriage x4 (normal spontaneous vaginal delivery) x8 Esophagitis GERD (gastroesophageal reflux disease) Constipation Hypercholesteremia Diabetes Hypertension Surgical History Surgical History History of D&C Family History Family History Mother Hypertension Diabetes mellitus Asthma Thyroid disorder Father Acute myocardial infarction Hypertension Sibling Asthma Hypertension Other Asthma Social History Social History Smoking packs per day: 1 Smoking cigarettes per day: 20.0 Years smoked: 20 Smoking pack-years: 20.00 Smoking status: Former smoker Tobacco type: cigarettes Second hand tobacco smoke exposure: No Smoking end date: 04/17/14 Alcohol intake: current Substance use: never Do You Feel Safe in your Home?: Yes Lack of Transportation: No Lack of Food: Never True Current Housing: I Have Housing Concerned About Future Housing: No Difficulty Paying Gas/Electric Bills: No Difficulty Paying for Meds: No Currently Unemployed: No Education: High School Diploma/GED Difficulty w/ Childcare or Family Care: No Living arrangements: with family Occupation/Education: occupation Gender identity (if verbalized by the patient): Female Sexual Orientation (if Verbalized by the Patient): Straight or Heterosexual Spiritual care concerns: No Comments At time of signature, I have reviewed and agree with nursing past medical, surgical, social and family history unless otherwise noted. Please see nursing chart for further information. There is no relevant family history pertinent to the presenting complaint Exam Narrative: GENERAL: Well-appearing, well-nourished, and in no acute distress. HEAD: Normocephalic, atraumatic. EYES: EOMI. No redness or drainage. Conjunctivae normal. ENT: Mucous membranes pink and moist. NECK: Normal AROM. CHEST: No respiratory distress. : deferred exam EXTREMITIES: Normal range of motion. No edema. SKIN: Warm, dry, no rash. Capillary refill normal. Normal skin turgor. NEURO: No focal deficits. Alert and oriented x3. Gait steady. PSYCH: Normal affect. No signs of depression or anxiety. Course Course Level of Care: Express Care Visit Vital Signs Vital signs: Vital Signs Temperature 98.8 F 01/27/25 16:52 Pulse Rate 97 01/27/25 16:52 Respiratory Rate 20 01/27/25 16:52 Blood Pressure 130/82 01/27/25 16:52 Pulse Oximetry 100 01/27/25 16:52 Oxygen Delivery Room Air 01/27/25 16:52 Temperature 98.8 F 01/27/25 16:52 Pulse Rate 97 01/27/25 16:52 Respiratory Rate 20 01/27/25 16:52 Blood Pressure 130/82 01/27/25 16:52 Pulse Oximetry 100 01/27/25 16:52 Oxygen Delivery Room Air 01/27/25 16:52 Reviewed MDM - Female Genitourinary MDM Narrative Medical decision making narrative: 49-year-old diabetic female presents today with a one-week history of malodorous vaginal discharge and external vaginal itching. Vital signs are stable. Likely vaginal yeast infection. Prescription for fluconazole sent to pharmacy. Patient does have an OBGYN she can follow up with if symptoms do not improve. Discussed trying to keep a blood sugar under control as this will help with development of vaginal yeast infections in the future. Also discussed changing clothes frequently if there wet or sweaty, wearing cotton underwear, not sitting in wet bathing suit as well. Differential Diagnosis Differential diagnosis: Likely bacterial vaginosis and vaginitis Critical Care Time Critical Care Time Critical Care Time: No Discharge Plan Discharge Clinical Impression: Vaginal yeast infection Patient Disposition: Home Condition: Stable Instructions: Yeast Infection (ED) Additional Instructions: Please take the fluconazole as directed. Follow-up with your OBGYN in 1 week if symptoms have not improved. As discussed, change out of sweaty your wet clothes frequently, keep your blood sugars under control. Follow-up with your PCP with any additional concerns. Your blood pressure was elevated above 120/80 today at Urgent Care. This puts you above the threshold for follow up. Please schedule a followup visit with your personal physician as soon as possible, for further evaluation and treatment. Even blood pressure exceeding 120/80 may indicate pre-hypertension. Patient Language: Malian Prescriptions: New fluconazole 150 mg tablet 150 mg PO Q3D Qty: 2 0RF No Action fluticasone propionate [Flonase Allergy Relief] 50 mcg/actuation spray,suspension 1 spray intranasal DAILY Qty: 16 0RF Rx Instructions: administer into each nostril pseudoephedrine HCl [12 Hour Decongestant] 120 mg tablet extended release 120 mg PO Q12H PRN (Reason: nasal congestion) Qty: 12 0RF estradiol [Vagifem] 10 mcg tablet VAGINAL medroxyprogesterone 150 mg/mL syringe IM ergocalciferol (vitamin D2) 1,250 mcg (50,000 unit) capsule 1,250 mcg PO DIRECTED valacyclovir 500 mg tablet 500 mg PO DAILY (DME) One Touch Verio Flex Bg Monitor 0 .Route .MEDSUPPLY (DME) One Touch Delica Plus 30 Gauge Lancets 0 .Route .MEDSUPPLY amlodipine 5 mg tablet 5 mg PO DAILY Qty: 90 1RF atorvastatin 20 mg tablet 20 mg PO DAILY Qty: 90 1RF omeprazole 40 mg capsule,delayed release(DR/EC) 40 mg PO DAILY Qty: 90 1RF cetirizine [Zyrtec] 10 mg tablet 10 mg PO DAILY Qty: 90 1RF medroxyprogesterone [Depo-Provera] 150 mg/mL suspension 150 mg IM [id number] Rybelsus 7 mg tablet 7 mg PO DAILY Qty: 30 3RF Follow-up/Referrals: Debby Hall APRN [Primary Care Provider] - Time of Disposition: 17:14
== END 2025-01-27 17:20 | disposition home or self-care (01) ==
PROVIDERS: Emergency Provider Nurse Practitioner; PCP Nurse Practitioner Family
DX: B37.31 Acute candidiasis of vulva and vagina (principal); Z87.891 Personal history of nicotine dependence; I10 Essential (primary) hypertension; E11.9 Type 2 diabetes mellitus without complications; E78.00 Pure hypercholesterolemia, unspecified; K21.9 Gastro-esophageal reflux disease without esophagitis
CPT/HCPCS: 99213; G0463